=== PATIENT | male | born 1945 | race Hispanic/Latino ===

== ENCOUNTER 2021-02-09 16:46 | Inpatient (IN) | payer MEDICARE ==
[~2021-02-09] VITALS: Ht 160 cm; Wt 92.1 kg
[2021-02-09 17:20] LABS: BASOPHILS % (AUTO) 0.2 % (0.0-5.0); EOSINOPHILS % (AUTO) 0.8 % (0.0-8.0); HEMATOCRIT 38.1 % (42-54); LYMPHOCYTES % (AUTO) 3.4 % (21.0-51.0); MEAN CORPUSCULAR HEMOGLOBIN 28.4 pg (27.0-33.0); MEAN CORPUSCULAR HGB CONC 33.9 g/dL (32.0-36.0); MEAN CORPUSCULAR VOLUME 83.9 fL (79-99); MONOCYTES % (AUTO) 3.1 % (3.0-13.0); NEUTROPHILS % (AUTO) 91.7 % (40.0-77.0); PLATELET COUNT (AUTO) 139 K/uL (130-400); RED BLOOD CELL COUNT(AUTO) 4.54 MIL/uL (4.50-6.20); RED CELL DISTRIBUTION WIDTH 12.7 % (11.0-15.5); WHITE BLOOD COUNT (AUTO) 11.1 K/uL (4.8-10.8)
[2021-02-09 17:29] LABS: INR 1.12 (0.85-1.15); PROTHROMBIN TIME 12.1 SEC (9.6-11.6)
[2021-02-09 17:30] LABS: PARTIAL THROMBOPLASTIN TIME 29.8 SEC (26.3-35.5)
[2021-02-09] MEDS ORDERED: ONDANSETRON 4MG INJ IVP ONE (17:30)
[2021-02-09] MEDS ORDERED: MORPHINE 2 MG SYG IVP ONE (17:30)
[2021-02-09] MEDS ORDERED: 0.9%NACL 1000ML 1,000 ML IV ONE (17:30)
[2021-02-09 17:36] LABS: CREATININE 1.1 mg/dL (0.5-1.5); POTASSIUM 3.4 mmol/L (3.5-5.1)
[2021-02-09 17:43] LABS: ALBUMIN 3.2 g/dL (3.5-5.0); BILIRUBIN,TOTAL 2.1 mg/dL (0.2-1.0); TOTAL PROTEIN, SERUM 7.2 g/dL (6.0-8.3)
[2021-02-09] MEDS ORDERED: KETOROLAC 15MG/ML VIAL (15MG/ML) ONE (17:57)
[2021-02-09] MEDS: MORPHINE 4 MG SYG ONE ×2 (17:58→18:33)
[2021-02-09] MEDS ORDERED: KETOROLAC 15MG/ML VIAL (15MG/ML) IV ONE (18:00)
[2021-02-09] MEDS ORDERED: MORPHINE 4 MG SYG IV ONE (18:00)
[2021-02-09 18:06] LABS: APPEARANCE,URINE Clear (CLEAR); BILIRUBIN,URINE Negative (NEGATIVE); COLOR,URINE Yellow (YELLOW); GLUCOSE, URINE (UA) Negative (NEGATIVE); KETONES,URINE Negative (NEGATIVE); LEUKOCYTE ESTERASE ,URINE Negative (NEGATIVE); NITRATE,URINE Negative (NEGATIVE); OCCULT BLOOD,URINE Small (NEGATIVE); PH,URINE 5.5 (5.0-8.0); PROTEIN,URINE POS 2+ mg/dL (NEGATIVE)
[2021-02-09] MEDS ORDERED: ACETAMINOPHEN 500 MG TABLET ONE (18:20)
[2021-02-09 18:27] LABS: BACTERIA,URINE Rare /HPF (None Seen); RBC,URINE 0-1 /HPF (0-1); SQUAMOUS EPITHELIAL CELL,UR Rare /HPF (0-2); WBC,URINE 0-1 /HPF (0-1)
[2021-02-09] MEDS ORDERED: ACETAMINOPHEN 500 MG TABLET PO ONE ×2 (18:30→19:00)
[2021-02-09] MEDS ORDERED: 0.9%NACL 50ML 50 ML IV ONE (19:55)
[2021-02-09] MEDS: ZOSYN 3.375GM +NS 50ML IV SCH (20:00)
[2021-02-09] MEDS ORDERED: MORPHINE 2 MG SYG IVP PRN (21:00)
[2021-02-09] MEDS ORDERED: ONDANSETRON 4MG INJ IVP PRN (21:00)
[2021-02-09] MEDS ORDERED: 0.9% NACL 500ML IV.SOLN 500 ML IV ONE (21:58)
[2021-02-09] MEDS ORDERED: 0.9%NACL 1000ML 1,000 ML IV STA ×2 (23:12→23:59)
[2021-02-09] MEDS ORDERED: MIDODRINE HCL 5 MG TABLET PO STA (23:23)
[2021-02-10] VITALS (16 sets, daily range): BP systolic 97–160; BP diastolic 38–88
[2021-02-10] MEDS ORDERED: NITROGLYCERIN 0.4 MG SL TAB SL PRN (00:30)
[2021-02-10] MEDS ORDERED: NOREPINEPHRIN 4MG/NS 250ML 250 ML IV ONE (00:41)
[2021-02-10] MEDS ORDERED: 0.9%NACL 100ML IVPB SCH (01:00)
[2021-02-10] MEDS ORDERED: VANCOMYCIN PROTOCOL PER PHARMACY IV SCH ×2 (01:00→07:00)
[2021-02-10] MEDS: NOREPINEPHRIN 4MG/NS 250ML 250 ML IV SCH ×2 (01:21→07:59)
[2021-02-10] MEDS ORDERED: VANCOMYCIN 1G/250ML KIT 250 ML IV ONE (01:30)
[2021-02-10] MEDS ORDERED: GLUCAGON 1MG KIT 1 MG ML IM PRN (04:30)
[2021-02-10] MEDS ORDERED: DEXTROSE 50%-WATER 50 ML DISP.SYRIN IV PRN (04:30)
[2021-02-10] MEDS: ZOSYN 3.375GM +NS 50ML IV SCH ×3 (05:54→21:26)
[2021-02-10] MEDS: INSULIN HUMULIN R 100 UNIT/ML 3ML SQ SCH ×3 (06:00→18:00)
[2021-02-10 06:33] LABS: BASOPHILS % (AUTO) 0.5 % (0.0-5.0); EOSINOPHILS % (AUTO) 0.1 % (0.0-8.0); HEMATOCRIT 37.9 % (42-54); LYMPHOCYTES % (AUTO) 1.1 % (21.0-51.0); MEAN CORPUSCULAR HEMOGLOBIN 29.6 pg (27.0-33.0); MEAN CORPUSCULAR HGB CONC 33.8 g/dL (32.0-36.0); MEAN CORPUSCULAR VOLUME 87.7 fL (79-99); MONOCYTES % (AUTO) 2.6 % (3.0-13.0); NEUTROPHILS % (AUTO) 94.8 % (40.0-77.0); PLATELET COUNT (AUTO) 115 K/uL (130-400); RED BLOOD CELL COUNT(AUTO) 4.32 MIL/uL (4.50-6.20); RED CELL DISTRIBUTION WIDTH 13.1 % (11.0-15.5)
[2021-02-10 06:36] LABS: WHITE BLOOD COUNT (AUTO) 35.8 K/uL (4.8-10.8)
[2021-02-10] MEDS: LEVOTHYROXINE 25 MCG TABLET PO SCH (06:40)
[2021-02-10 07:00] LABS: BAND NEUTROPHILS % (MANUAL) 16 % (0-2); CREATININE 1.9 mg/dL (0.5-1.5); MAGNESIUM 1.6 mg/dL (1.80-2.40); MAN.DIFF COMMENT-IMPRESSION MANUAL DIFFERENTIAL; MONOCYTES % (MANUAL) 7 % (2-9); PLATELET MORPHOLOGY COMMENT SLIGHTLY DECREASED; POTASSIUM 3.3 mmol/L (3.5-5.1); SEGMENTED NEUTROPHILS % 77 % (40-70); THYROID STIMULATING HORMONE 3.19 uIU/mL (0.36-3.74)
[2021-02-10] MEDS: VANCOMYCIN 1G/250ML KIT 250 ML IV SCH ×2 (11:08→21:27)
[2021-02-10] MEDS: FAMOTIDINE 20MG VIAL IV SCH (11:08)
[2021-02-10] MEDS ORDERED: LIDOCAINE HCL-MPF 1% 2ML VIAL IV PRN ×2 (11:30)
[2021-02-10] MEDS ORDERED: KCL 20 MEQ ERTAB PO PRN (11:30)
[2021-02-10] MEDS ORDERED: POTASSIUM CHLORIDE 10MEQ/100ML 100 ML IV PRN ×2 (11:30)
[2021-02-10] MEDS: 0.9%NACL 1000ML 1,000 ML IV SCH ×2 (11:44→21:27)
[2021-02-10] MEDS ORDERED: GABA300T25 PO (15:10)
[2021-02-10] MEDS ORDERED: ROSU10TA28 PO (15:10)
[2021-02-10] MEDS ORDERED: TAMSULOSIN PO (15:10)
[2021-02-10] MEDS ORDERED: RAMI5CAP66 PO (15:10)
[2021-02-10] MEDS ORDERED: ASPI-1521 PO (15:10)
[2021-02-10] MEDS ORDERED: MAGNESIUM 2GM PREMIX 50ML 50 ML IV PRN (15:30)
[2021-02-10 15:33] LABS: BILIRUBIN,DIRECT 0.7 mg/dL (0.0-0.3); BILIRUBIN,TOTAL 2.2 mg/dL (0.2-1.0)
[2021-02-10] MEDS ORDERED: 0.9% NACL 250ML 250 ML ONE (20:25)
[2021-02-10] MEDS: IPRATROPIUM 0.5 MG/2.5 ML INH IH SCH (22:07)
[2021-02-10] MEDS ORDERED: ALBUTEROL 0.083% 2.5 MG/3 ML INH IH PRN (23:30)
[2021-02-10] MEDS ORDERED: TAMSULOSIN HCL 0.4 MG CAP.ER.24H ONE (23:50)
[2021-02-11] VITALS (31 sets, daily range): BP systolic 74–193; BP diastolic 53–98
[2021-02-11] MEDS ORDERED: TAMSULOSIN HCL 0.4 MG CAP.ER.24H PO SCH
[2021-02-11] MEDS: IPRATROPIUM 0.5 MG/2.5 ML INH IH SCH ×3 (00:40→18:10)
[2021-02-11] MEDS ORDERED: HYDROMORPHONE 1 MG INJ IVP ONE (01:30)
[2021-02-11] MEDS ORDERED: HYDROMORPHONE 1 MG INJ ONE (01:33)
[2021-02-11] MEDS: ACETAMINOPHEN 325 MG TAB PO PRN ×2 (01:50→23:44)
[2021-02-11 02:25] LABS: BASOPHILS % (AUTO) 0.5 % (0.0-5.0); EOSINOPHILS % (AUTO) 1.6 % (0.0-8.0); HEMATOCRIT 35.4 % (42-54); MEAN CORPUSCULAR HEMOGLOBIN 29.4 pg (27.0-33.0); MEAN CORPUSCULAR HGB CONC 34.5 g/dL (32.0-36.0); MEAN CORPUSCULAR VOLUME 85.3 fL (79-99); MONOCYTES % (AUTO) 1.5 % (3.0-13.0); NEUTROPHILS % (AUTO) 91.9 % (40.0-77.0); PLATELET COUNT (AUTO) 85 K/uL (130-400); RED BLOOD CELL COUNT(AUTO) 4.15 MIL/uL (4.50-6.20); RED CELL DISTRIBUTION WIDTH 13.4 % (11.0-15.5); WHITE BLOOD COUNT (AUTO) 20.2 K/uL (4.8-10.8)
[2021-02-11 02:41] LABS: ALBUMIN 2.4 g/dL (3.5-5.0); BILIRUBIN,TOTAL 1.8 mg/dL (0.2-1.0); CREATININE 1.6 mg/dL (0.5-1.5); MAGNESIUM 2.3 mg/dL (1.80-2.40); PHOSPHORUS 2.2 mg/dL (2.5-4.9); POTASSIUM 3.3 mmol/L (3.5-5.1)
[2021-02-11] MEDS: ZOSYN 3.375GM +NS 50ML IV SCH (04:20)
[2021-02-11] MEDS ORDERED: 0.9%NACL 1000ML 1,000 ML IV ONE (04:30)
[2021-02-11] MEDS: INSULIN HUMULIN R 100 UNIT/ML 3ML SQ SCH ×4 (06:00→18:00)
[2021-02-11] MEDS: LEVOTHYROXINE 25 MCG TABLET PO SCH (07:24)
[2021-02-11] MEDS: 0.9%NACL 1000ML 1,000 ML IV SCH ×2 (07:30→17:31)
[2021-02-11] MEDS: FAMOTIDINE 20MG VIAL IV SCH (09:54)
[2021-02-11] MEDS: VANCOMYCIN 1G/250ML KIT 250 ML IV SCH (09:55)
[2021-02-11] MEDS: CEFTRIAXONE 2GM VIAL IVP SCH (12:22)
[2021-02-11] MEDS: TAMSULOSIN HCL 0.4 MG CAP.ER.24H PO SCH (19:10)
[2021-02-11] MEDS ORDERED: TAMSULOSIN HCL 0.4 MG CAP.ER.24H ONE (19:10)
[2021-02-12] VITALS (26 sets, daily range): BP systolic 91–152; BP diastolic 53–95
[2021-02-12] MEDS ORDERED: KETOROLAC 15MG/ML VIAL (15MG/ML) IV ONE
[2021-02-12] MEDS: IPRATROPIUM 0.5 MG/2.5 ML INH IH SCH ×4 (00:02→19:02)
[2021-02-12] MEDS ORDERED: KETOROLAC 15MG/ML VIAL (15MG/ML) ONE (02:10)
[2021-02-12 03:34] LABS: BASOPHILS % (AUTO) 0.4 % (0.0-5.0); HEMATOCRIT 33.4 % (42-54); LYMPHOCYTES % (AUTO) 1.1 % (21.0-51.0); MEAN CORPUSCULAR HEMOGLOBIN 28.9 pg (27.0-33.0); MEAN CORPUSCULAR HGB CONC 33.5 g/dL (32.0-36.0); MEAN CORPUSCULAR VOLUME 86.3 fL (79-99); MONOCYTES % (AUTO) 2.8 % (3.0-13.0); PLATELET COUNT (AUTO) 67 K/uL (130-400); RED BLOOD CELL COUNT(AUTO) 3.87 MIL/uL (4.50-6.20); RED CELL DISTRIBUTION WIDTH 13.8 % (11.0-15.5)
[2021-02-12 03:47] LABS: INR 1.1 (0.85-1.15); PROTHROMBIN TIME 11.9 SEC (9.6-11.6)
[2021-02-12 03:56] LABS: ALBUMIN 2.1 g/dL (3.5-5.0); BILIRUBIN,TOTAL 1.9 mg/dL (0.2-1.0); CREATININE 1.7 mg/dL (0.5-1.5); TOTAL PROTEIN, SERUM 5.7 g/dL (6.0-8.3)
[2021-02-12 04:00] LABS: POTASSIUM 2.6 mmol/L (3.5-5.1)
[2021-02-12] MEDS: POTASSIUM CHLORIDE 10MEQ/100ML 100 ML IV PRN ×3 (04:05→04:51)
[2021-02-12] MEDS: 0.9%NACL 1000ML 1,000 ML IV SCH ×2 (04:16→14:23)
[2021-02-12] MEDS: INSULIN HUMULIN R 100 UNIT/ML 3ML SQ SCH ×4 (06:00→17:41)
[2021-02-12] MEDS: LEVOTHYROXINE 25 MCG TABLET PO SCH (06:12)
[2021-02-12] MEDS: ACETAMINOPHEN 325 MG TAB PO PRN (07:19)
[2021-02-12] MEDS: TAMSULOSIN HCL 0.4 MG CAP.ER.24H PO SCH (08:25)
[2021-02-12] MEDS: FAMOTIDINE 20MG VIAL IV SCH (08:25)
[2021-02-12] MEDS ORDERED: IOHEXOL-350 50ML VIAL IV ONE (11:58)
[2021-02-12] MEDS ORDERED: PROPOFOL 10 MG/ML 20ML VIAL IV ONE (12:22)
[2021-02-12] MEDS ORDERED: MIDAZOLAM HCL 1 MG/ML 2ML VIAL ONE (12:23)
[2021-02-12] MEDS ORDERED: FENTANYL CITRATE PF 50 MCG/1 ML 2ML VIAL ONE (12:23)
[2021-02-12] MEDS ORDERED: ROCURONIUM 10MG/1ML SYR 10 MG/ML ML ONE (12:24)
[2021-02-12] MEDS ORDERED: GLYCOPYRROLATE 0.2 MG/ML 5 ML VIAL ONE (12:28)
[2021-02-12] MEDS ORDERED: ESMOLOL HCL 10 MG/ML 10 ML VIAL ONE (12:44)
[2021-02-12] MEDS: CEFTRIAXONE 2GM VIAL IVP SCH (14:23)
[2021-02-13] VITALS (11 sets, daily range): BP systolic 124–148; BP diastolic 71–99
[2021-02-13] MEDS: 0.9%NACL 1000ML 1,000 ML IV SCH (00:39)
[2021-02-13] MEDS: IPRATROPIUM 0.5 MG/2.5 ML INH IH SCH ×3 (00:51→11:16)
[2021-02-13 04:36] LABS: BASOPHILS % (AUTO) 0.5 % (0.0-5.0); EOSINOPHILS % (AUTO) 0.7 % (0.0-8.0); HEMATOCRIT 35.7 % (42-54); LYMPHOCYTES % (AUTO) 3.3 % (21.0-51.0); MEAN CORPUSCULAR HEMOGLOBIN 28.6 pg (27.0-33.0); MEAN CORPUSCULAR HGB CONC 33.6 g/dL (32.0-36.0); MONOCYTES % (AUTO) 3.1 % (3.0-13.0); NEUTROPHILS % (AUTO) 90.5 % (40.0-77.0); PLATELET COUNT (AUTO) 36 K/uL (130-400); RED CELL DISTRIBUTION WIDTH 14.2 % (11.0-15.5)
[2021-02-13 05:00] LABS: ALANINE AMINOTRANSFERASE 37 U/L (12-78); ALBUMIN 1.9 g/dL (3.5-5.0); ASPARTATE AMINOTRANSFERASE 45 U/L (10-37); BILIRUBIN,DIRECT 0.3 mg/dL (0.0-0.3); BILIRUBIN,TOTAL 1.1 mg/dL (0.2-1.0); CARBON DIOXIDE 18 mmol/L (21-32); CREATININE 1.4 mg/dL (0.5-1.5); GLOMERULAR FILTR. RATE CALC 53 mL/min (>60); GLUCOSE,RANDOM 136 mg/dL (70-105); POTASSIUM 3.5 mmol/L (3.5-5.1); SODIUM SERUM 152 mmol/L (136-145); TOTAL PROTEIN, SERUM 5.8 g/dL (6.0-8.3); UREA NITROGEN, BLOOD 38 mg/dL (7-18)
[2021-02-13 05:29] LABS: CHLORIDE 120 mmol/L (101-111)
[2021-02-13 05:30] LABS: LIPASE < 50 U/L (114-286)
[2021-02-13] MEDS: INSULIN HUMULIN R 100 UNIT/ML 3ML SQ SCH ×5 (05:37→22:00)
[2021-02-13] MEDS: LEVOTHYROXINE 25 MCG TABLET PO SCH (06:02)
[2021-02-13] MEDS: TAMSULOSIN HCL 0.4 MG CAP.ER.24H PO SCH (07:57)
[2021-02-13] MEDS: PANTOPRAZOLE 40 MG TAB DR PO SCH (07:57)
[2021-02-13] MEDS ORDERED: POLYETHYLENE GLYCOL 3350 17 GM POWD.PACK PO SCH (09:00)
[2021-02-13] MEDS: POLYETHYLENE GLYCOL 3350 17 GM POWD.PACK PO SCH (14:53)
[2021-02-13] MEDS: CEFTRIAXONE 2GM VIAL IVP SCH (14:53)
[2021-02-13] MEDS ORDERED: PHARMACY COMMUNICATION MISC SCH (21:30)
[2021-02-13] MEDS ORDERED: INSULIN HUMULIN R 100 UNIT/ML 3ML SQ SCH (21:30)
[2021-02-14 00:28] VITALS: BP 143/85
[2021-02-14] MEDS: IPRATROPIUM 0.5 MG/2.5 ML INH IH SCH ×4 (01:33→23:27)
[2021-02-14 04:28] VITALS: BP 143/83
[2021-02-14] MEDS: INSULIN HUMULIN R 100 UNIT/ML 3ML SQ SCH ×4 (06:42→21:00)
[2021-02-14] MEDS: LEVOTHYROXINE 25 MCG TABLET PO SCH (06:44)
[2021-02-14 07:35] VITALS: BP 156/91
[2021-02-14] MEDS: POLYETHYLENE GLYCOL 3350 17 GM POWD.PACK PO SCH (10:04)
[2021-02-14] MEDS: PANTOPRAZOLE 40 MG TAB DR PO SCH (10:04)
[2021-02-14] MEDS: TAMSULOSIN HCL 0.4 MG CAP.ER.24H PO SCH (10:04)
[2021-02-14 10:06] LABS: HEMATOCRIT 37.3 % (42-54); MEAN CORPUSCULAR HEMOGLOBIN 28.6 pg (27.0-33.0); PLATELET COUNT (AUTO) 32 K/uL (130-400); RED BLOOD CELL COUNT(AUTO) 4.44 MIL/uL (4.50-6.20); WHITE BLOOD COUNT (AUTO) 10.2 K/uL (4.8-10.8)
[2021-02-14 10:21] LABS: ALBUMIN 2.1 g/dL (3.5-5.0); BILIRUBIN,TOTAL 1.1 mg/dL (0.2-1.0); CREATININE 1.2 mg/dL (0.5-1.5); POTASSIUM 3.3 mmol/L (3.5-5.1); TOTAL PROTEIN, SERUM 5.8 g/dL (6.0-8.3)
[2021-02-14 10:52] LABS: LYMPHOCYTES % (MANUAL) 3 % (22-44); MAN.DIFF COMMENT-IMPRESSION MANUAL DIFFERENTIAL; MONOCYTES % (MANUAL) 2 % (2-9); SEGMENTED NEUTROPHILS % 95 % (40-70)
[2021-02-14 11:35] VITALS: BP 160/79
[2021-02-14] MEDS ORDERED: BENZOCAINE/MENTH/CETYLPYRD CL 1 EACH LOZENGE MM PRN (12:30)
[2021-02-14 15:40] VITALS: BP 143/82
[2021-02-14] MEDS: CEFTRIAXONE 2GM VIAL IVP SCH (16:51)
[2021-02-14 20:32] VITALS: BP 149/85
[2021-02-14] MEDS: POTASSIUM CHLORIDE 10% ELIXIR 20 MEQ/15 ML UDCUP PO PRN ×2 (21:06→22:57)
[2021-02-15] VITALS (7 sets, daily range): BP systolic 135–160; BP diastolic 74–100
[2021-02-15] MEDS: POTASSIUM CHLORIDE 10% ELIXIR 20 MEQ/15 ML UDCUP PO PRN (00:40)
[2021-02-15 04:58] LABS: HEMATOCRIT 33.6 % (42-54); MEAN CORPUSCULAR HEMOGLOBIN 28.4 pg (27.0-33.0); MEAN CORPUSCULAR HGB CONC 34.5 g/dL (32.0-36.0); MEAN CORPUSCULAR VOLUME 82.4 fL (79-99); PLATELET COUNT (AUTO) 32 K/uL (130-400); RED BLOOD CELL COUNT(AUTO) 4.08 MIL/uL (4.50-6.20); RED CELL DISTRIBUTION WIDTH 13.7 % (11.0-15.5); WHITE BLOOD COUNT (AUTO) 7.7 K/uL (4.8-10.8)
[2021-02-15 05:14] LABS: ALANINE AMINOTRANSFERASE 42 U/L (12-78); ALBUMIN 1.9 g/dL (3.5-5.0); ASPARTATE AMINOTRANSFERASE 37 U/L (10-37); BILIRUBIN,DIRECT 0.3 mg/dL (0.0-0.3); BILIRUBIN,TOTAL 0.9 mg/dL (0.2-1.0); CARBON DIOXIDE 21 mmol/L (21-32); CHLORIDE 118 mmol/L (101-111); CREATININE 1.1 mg/dL (0.5-1.5); GLOMERULAR FILTR. RATE CALC 70 mL/min (>60); GLUCOSE,RANDOM 105 mg/dL (70-105); POTASSIUM 3.5 mmol/L (3.5-5.1); SODIUM SERUM 149 mmol/L (136-145); TOTAL PROTEIN, SERUM 5.3 g/dL (6.0-8.3); UREA NITROGEN, BLOOD 29 mg/dL (7-18)
[2021-02-15 05:22] LABS: LIPASE < 50 U/L (114-286)
[2021-02-15] MEDS: LEVOTHYROXINE 25 MCG TABLET PO SCH (05:25)
[2021-02-15] MEDS: INSULIN HUMULIN R 100 UNIT/ML 3ML SQ SCH ×4 (05:48→21:00)
[2021-02-15] MEDS: IPRATROPIUM 0.5 MG/2.5 ML INH IH SCH ×3 (06:38→18:28)
[2021-02-15] MEDS: TAMSULOSIN HCL 0.4 MG CAP.ER.24H PO SCH (10:55)
[2021-02-15] MEDS: POLYETHYLENE GLYCOL 3350 17 GM POWD.PACK PO SCH (10:55)
[2021-02-15] MEDS: PANTOPRAZOLE 40 MG TAB DR PO SCH (10:55)
[2021-02-15] MEDS ORDERED: HYDRALAZINE 25MG TABLET PO SCH (13:00)
[2021-02-15] MEDS ORDERED: RAMI5CAP66 PO (14:33)
[2021-02-15] MEDS: CEFTRIAXONE 2GM VIAL IVP SCH (15:05)
[2021-02-15] MEDS: LISINOPRIL 20 MG TABLET PO SCH (15:24)
[2021-02-15] MEDS ORDERED: DEXAMETHASONE SOD PHOSPHATE 4 MG/ML 1ML VIAL IVP SCH (18:00)
[2021-02-15] MEDS ORDERED: 0.9% NACL 250ML 250 ML ONE (21:55)
[2021-02-15] MEDS: METOPROLOL TARTRATE 25 MG TAB PO SCH (22:12)
[2021-02-16] MEDS: IPRATROPIUM 0.5 MG/2.5 ML INH IH SCH ×3 (00:34→13:04)
[2021-02-16 03:55] VITALS: BP 149/82
[2021-02-16 04:32] LABS: HEMATOCRIT 30.8 % (42-54); MEAN CORPUSCULAR HEMOGLOBIN 28.7 pg (27.0-33.0); MEAN CORPUSCULAR HGB CONC 35.1 g/dL (32.0-36.0); MEAN CORPUSCULAR VOLUME 81.9 fL (79-99); PLATELET COUNT (AUTO) 51 K/uL (130-400); RED BLOOD CELL COUNT(AUTO) 3.76 MIL/uL (4.50-6.20); RED CELL DISTRIBUTION WIDTH 13.8 % (11.0-15.5); WHITE BLOOD COUNT (AUTO) 8.5 K/uL (4.8-10.8)
[2021-02-16 04:43] LABS: INR 1.03 (0.85-1.15); PROTHROMBIN TIME 11.2 SEC (9.6-11.6)
[2021-02-16 04:44] LABS: PARTIAL THROMBOPLASTIN TIME 24.5 SEC (26.3-35.5)
[2021-02-16 05:04] LABS: BILIRUBIN,TOTAL 1.1 mg/dL (0.2-1.0); CREATININE 1.1 mg/dL (0.5-1.5); POTASSIUM 3.7 mmol/L (3.5-5.1); TOTAL PROTEIN, SERUM 5.5 g/dL (6.0-8.3)
[2021-02-16 05:11] LABS: LYMPHOCYTES % (MANUAL) 5 % (22-44); MAN.DIFF COMMENT-IMPRESSION MANUAL DIFFERENTIAL; MONOCYTES % (MANUAL) 5 % (2-9); SEGMENTED NEUTROPHILS % 90 % (40-70)
[2021-02-16 05:12] LABS: PLATELET MORPHOLOGY COMMENT MARKED DECREASE
[2021-02-16] MEDS: LEVOTHYROXINE 25 MCG TABLET PO SCH (06:25)
[2021-02-16] MEDS: INSULIN HUMULIN R 100 UNIT/ML 3ML SQ SCH ×2 (06:25→11:30)
[2021-02-16 07:58] VITALS: BP 145/86
[2021-02-16] MEDS: POLYETHYLENE GLYCOL 3350 17 GM POWD.PACK PO SCH (09:00)
[2021-02-16] MEDS ORDERED: NON-FORMULARY MEDICATION 1 EACH (Ramipril 5 MG) PO SCH (09:00)
[2021-02-16] MEDS: TAMSULOSIN HCL 0.4 MG CAP.ER.24H PO SCH (09:52)
[2021-02-16] MEDS: METOPROLOL TARTRATE 25 MG TAB PO SCH (09:52)
[2021-02-16] MEDS: LISINOPRIL 20 MG TABLET PO SCH (09:53)
[2021-02-16] MEDS: PANTOPRAZOLE 40 MG TAB DR PO SCH (09:54)
[2021-02-16 10:40] LABS: APPEARANCE,URINE Clear (CLEAR); BILIRUBIN,URINE Negative (NEGATIVE); COLOR,URINE Yellow (YELLOW); GLUCOSE, URINE (UA) Negative (NEGATIVE); KETONES,URINE Negative (NEGATIVE); LEUKOCYTE ESTERASE ,URINE Negative (NEGATIVE); NITRATE,URINE Negative (NEGATIVE); OCCULT BLOOD,URINE Moderate (NEGATIVE); PROTEIN,URINE Negative (NEGATIVE); UROBILINOGEN,URINE 0.2 mg/dL (0.2-1.0)
[2021-02-16 10:56] LABS: BACTERIA,URINE None Seen /HPF (None Seen); RBC,URINE 0-1 /HPF (0-1); SQUAMOUS EPITHELIAL CELL,UR 0-2 /HPF (0-2); WBC,URINE 0-1 /HPF (0-1)
[2021-02-16 11:30] VITALS: BP 134/78
[2021-02-23] MEDS ORDERED: GABA300C PO (13:13)
[2021-02-23] MEDS ORDERED: LEVO750T46 PO (13:13)
[2021-02-23] MEDS ORDERED: ACET-2247 PO (13:13)
[2021-02-23] MEDS ORDERED: TAMS-1 PO (13:13)
== END 2021-02-16 16:45 | disposition home or self-care (01) | DRG 871 ==
LOC: EDH 16:46 → EDHIP 20:31 → 3CH 22:24 → EDHIP 23:46 → 2DH 02-10 08:32 → 3BH 02-13 18:20
PROVIDERS: ADMIT Internal Medicine Infectious Disease; ATTEND Internal Medicine Infectious Disease
PROC: 0FC98ZZ Extirpation of Matter from Common Bile Duct, Via Natural or Artificial Opening Endoscopic (ICD-10-PCS; principal; 2021-02-12)
PROC: 30233R1 Transfusion of Nonautologous Platelets into Peripheral Vein, Percutaneous Approach (ICD-10-PCS; 2021-02-15)
DX: A41.51 Sepsis due to Escherichia coli [E. coli] (principal); R65.21 Severe sepsis with septic shock; K80.62 Calculus of gallbladder and bile duct with acute cholecystitis without obstruction; N17.9 Acute kidney failure, unspecified; K82.8 Other specified diseases of gallbladder; D69.6 Thrombocytopenia, unspecified; E87.6 Hypokalemia; Z20.822 Contact with and (suspected) exposure to COVID-19; M19.90 Unspecified osteoarthritis, unspecified site; B96.20 Unspecified Escherichia coli [E. coli] as the cause of diseases classified elsewhere; B96.89 Other specified bacterial agents as the cause of diseases classified elsewhere; D64.9 Anemia, unspecified; E11.22 Type 2 diabetes mellitus with diabetic chronic kidney disease; E66.9 Obesity, unspecified; E78.00 Pure hypercholesterolemia, unspecified; E78.5 Hyperlipidemia, unspecified; E03.9 Hypothyroidism, unspecified; E86.0 Dehydration; I12.9 Hypertensive chronic kidney disease with stage 1 through stage 4 chronic kidney disease, or unspecified chronic kidney disease; E87.8 Other disorders of electrolyte and fluid balance, not elsewhere classified; J44.9 Chronic obstructive pulmonary disease, unspecified; N18.9 Chronic kidney disease, unspecified; N40.0 Benign prostatic hyperplasia without lower urinary tract symptoms; R53.81 Other malaise; Z68.36 Body mass index [BMI] 36.0-36.9, adult; Z86.73 Personal history of transient ischemic attack (TIA), and cerebral infarction without residual deficits; Z83.3 Family history of diabetes mellitus
CPT/HCPCS: 36415; 36430; 43262; 43264; 71045; 74176; 74181; 74330; 76705; 80048; 80053; 80076; 80202; 81001; 82247; 82248; 82550; 82948; 83605; 83690; 83735; 83880; 83883; 84100; 84132; 84145; 84443; 84484; 85025; 85027; 85610; 85730; 86334; 86850; 86900; 86901; 87040; 87077; 87088; 87186; 87635; 93005; 94640; A4606; C1769; C1773; C9803; G0378; J0696; J1100; J1170; J1885; J2250; J2270; J2405; J2543; J2704; J3010; J3370; J3475; J3490; J7030; J7040; J7050; P9034; Q9967

== ENCOUNTER 2021-02-24 11:40 | Day surgery (SDC) | payer MEDICARE ==
[2021-02-22 12:03] LABS: BASOPHILS % (AUTO) 0.4 % (0.0-5.0); HEMATOCRIT 32.4 % (42-54); LYMPHOCYTES % (AUTO) 10.7 % (21.0-51.0); MEAN CORPUSCULAR HEMOGLOBIN 28.9 pg (27.0-33.0); MEAN CORPUSCULAR VOLUME 87.6 fL (79-99); MONOCYTES % (AUTO) 10.6 % (3.0-13.0); NEUTROPHILS % (AUTO) 76.9 % (40.0-77.0); PLATELET COUNT (AUTO) 225 K/uL (130-400); RED CELL DISTRIBUTION WIDTH 14.4 % (11.0-15.5); WHITE BLOOD COUNT (AUTO) 7.3 K/uL (4.8-10.8)
[2021-02-22 12:14] LABS: CREATININE 1.1 mg/dL (0.5-1.5); POTASSIUM 3.5 mmol/L (3.5-5.1)
[2021-02-22 12:16] LABS: INR 1.04 (0.85-1.15); PROTHROMBIN TIME 11.3 SEC (9.6-11.6)
[2021-02-23 11:35] VITALS: BP 145/79
[~2021-02-24] VITALS: Ht 160 cm; Wt 85.5 kg
[2021-02-24] VITALS (14 sets, daily range): BP systolic 140–159; BP diastolic 62–84
[~2021-02-24 11:40] MED LIST: 0.9% NACL 500ML IV.SOLN 500 ML IV SCH; ACET-2247 PO; GABA300C PO; LEVO750T46 PO; TAMS-1 PO
[2021-02-24] MEDS ORDERED: LACTATED RINGERS 1000ML 1,000 ML IV ONE (12:18)
[2021-02-24] MEDS: CEFAZOLIN SODIUM 1 GM VIAL IVP SCH ×4 (12:51→17:55)
[2021-02-24] MEDS ORDERED: INDOCYANINE GREEN 25 MG VIAL IJ ONE (13:14)
[2021-02-24] MEDS ORDERED: BUPIVACAINE/PF 0.5% 30ML VIAL ONE (17:39)
[2021-02-24] MEDS ORDERED: MIDAZOLAM HCL 1 MG/ML 2ML VIAL ONE (17:50)
[2021-02-24] MEDS ORDERED: PROPOFOL 10 MG/ML 20ML VIAL IV ONE (17:50)
[2021-02-24] MEDS ORDERED: LIDOCAINE PF 100MG/5ML (2%) SYRINGE 5ML ONE (17:50)
[2021-02-24] MEDS ORDERED: ROCURONIUM 10MG/1ML SYR 10 MG/ML ML ONE (17:51)
[2021-02-24] MEDS ORDERED: FENTANYL CITRATE PF 50 MCG/1 ML 2ML VIAL ONE (17:51)
[2021-02-24] MEDS ORDERED: EPHEDRINE SULFATE 50 MG/ML AMPULE ONE (18:11)
[2021-02-24] MEDS ORDERED: MEPERIDINE-PF 25 MG/ML SYG ONE (19:04)
== END 2021-02-24 21:47 | disposition home or self-care (01) ==
LOC: DAH 11:40
PROVIDERS: ATTEND Student in an Organized Health Care Education/Training Program
DX: K80.10 Calculus of gallbladder with chronic cholecystitis without obstruction (principal); Z20.822 Contact with and (suspected) exposure to COVID-19; I10 Essential (primary) hypertension; E66.9 Obesity, unspecified; M19.90 Unspecified osteoarthritis, unspecified site; Z79.01 Long term (current) use of anticoagulants; Z86.73 Personal history of transient ischemic attack (TIA), and cerebral infarction without residual deficits; Z98.890 Other specified postprocedural states
CPT/HCPCS: 36415; 47562; 80048; 85025; 85610; 87635; 93005; A4215; A4221; A4222; A4223; A4600; A4649 ×5; A4663; A4930; A6206; A6207; A6260; C1769 ×3; C9803; G0168; J0690; J2001; J2175; J2250; J2704; J3010; J3490 ×2; J7030; J7120

== ENCOUNTER 2021-03-01 14:37 | Inpatient (IN) | payer MEDICARE ==
[~2021-03-01] VITALS: Ht 157.5 cm; Wt 73.1 kg
[~2021-03-01 14:37] MED LIST changes: -0.9% NACL 500ML IV.SOLN 500 ML IV SCH
[2021-03-01 15:51] LABS: BASOPHILS % (AUTO) 0.2 % (0.0-5.0); EOSINOPHILS % (AUTO) 0.6 % (0.0-8.0); LYMPHOCYTES % (AUTO) 6.1 % (21.0-51.0); MEAN CORPUSCULAR HEMOGLOBIN 27.9 pg (27.0-33.0); MEAN CORPUSCULAR HGB CONC 33.4 g/dL (32.0-36.0); MEAN CORPUSCULAR VOLUME 83.3 fL (79-99); MONOCYTES % (AUTO) 5.7 % (3.0-13.0); PLATELET COUNT (AUTO) 243 K/uL (130-400); RED BLOOD CELL COUNT(AUTO) 3.48 MIL/uL (4.50-6.20); RED CELL DISTRIBUTION WIDTH 14.2 % (11.0-15.5); WHITE BLOOD COUNT (AUTO) 10.1 K/uL (4.8-10.8)
[2021-03-01 15:59] LABS: APPEARANCE,URINE Clear (CLEAR); BILIRUBIN,URINE Negative (NEGATIVE); COLOR,URINE Yellow (YELLOW); GLUCOSE, URINE (UA) Negative (NEGATIVE); KETONES,URINE Negative (NEGATIVE); LEUKOCYTE ESTERASE ,URINE Trace (NEGATIVE); NITRATE,URINE Negative (NEGATIVE); OCCULT BLOOD,URINE Nonhemolyzed Trace (NEGATIVE); PH,URINE 6.5 (5.0-8.0); PROTEIN,URINE Trace mg/dL (NEGATIVE)
[2021-03-01 16:03] LABS: CREATININE 1.3 mg/dL (0.5-1.5); INR 1.07 (0.85-1.15); POTASSIUM 3.7 mmol/L (3.5-5.1); PROTHROMBIN TIME 11.6 SEC (9.6-11.6)
[2021-03-01 16:07] LABS: ALBUMIN 2.2 g/dL (3.5-5.0); BILIRUBIN,TOTAL 0.7 mg/dL (0.2-1.0); TOTAL PROTEIN, SERUM 6.6 g/dL (6.0-8.3)
[2021-03-01 16:38] LABS: BACTERIA,URINE Rare /HPF (None Seen); SQUAMOUS EPITHELIAL CELL,UR Rare /HPF (0-2)
[2021-03-01] MEDS ORDERED: KETOROLAC 30MG VIAL (30MG/ML) IVP ONE (17:00)
[2021-03-01] MEDS ORDERED: FAMOTIDINE 20MG VIAL IV ONE (17:00)
[2021-03-01] MEDS ORDERED: ACETAMINOPHEN 500 MG TABLET ONE (17:54)
[2021-03-01] MEDS ORDERED: ACETAMINOPHEN 500 MG TABLET PO ONE (18:00)
[2021-03-01] MEDS ORDERED: LEVOFLOXACIN 500 MG/D5W 100 ML 100 ML IV SCH (19:00)
[2021-03-01] MEDS ORDERED: MORPHINE 2 MG SYG IVP PRN ×2 (20:00→20:30)
[2021-03-01] MEDS ORDERED: ACETAMINOPHEN 325 MG TAB PO PRN ×2 (20:00→20:30)
[2021-03-01] MEDS ORDERED: ONDANSETRON 4MG INJ IVP PRN ×2 (20:00→20:30)
[2021-03-01] MEDS: ZOSYN 3.375GM +NS 50ML IV SCH (20:17)
[2021-03-01] MEDS: INSULIN R PO SS1 SQ SCH (20:44)
[2021-03-01] MEDS ORDERED: INSULIN HUMULIN R 100 UNIT/ML 3ML SQ SCH (21:00)
[2021-03-02] MEDS: ZOSYN 3.375GM +NS 50ML IV SCH ×3 (02:47→17:52)
[2021-03-02 02:48] VITALS: BP 137/65
[2021-03-02 04:00] VITALS: BP 108/59
[2021-03-02] MEDS ORDERED: ZOSYN 3.375GM +NS 50ML IV SCH (05:00)
[2021-03-02 06:15] LABS: BASOPHILS % (AUTO) 0.4 % (0.0-5.0); EOSINOPHILS % (AUTO) 1.5 % (0.0-8.0); LYMPHOCYTES % (AUTO) 10.1 % (21.0-51.0); MEAN CORPUSCULAR HEMOGLOBIN 28.3 pg (27.0-33.0); MEAN CORPUSCULAR HGB CONC 32.9 g/dL (32.0-36.0); MONOCYTES % (AUTO) 7.4 % (3.0-13.0); NEUTROPHILS % (AUTO) 80.2 % (40.0-77.0); PLATELET COUNT (AUTO) 189 K/uL (130-400); RED BLOOD CELL COUNT(AUTO) 2.79 MIL/uL (4.50-6.20); RED CELL DISTRIBUTION WIDTH 13.9 % (11.0-15.5)
[2021-03-02 06:23] LABS: HEMOGLOBIN A1C 5.9 % (4.0-6.0)
[2021-03-02 06:25] LABS: ALBUMIN 1.6 g/dL (3.5-5.0); BILIRUBIN,TOTAL 0.7 mg/dL (0.2-1.0); CREATININE 1.3 mg/dL (0.5-1.5); MAGNESIUM 1.6 mg/dL (1.80-2.40); POTASSIUM 3.6 mmol/L (3.5-5.1); TOTAL PROTEIN, SERUM 5.1 g/dL (6.0-8.3)
[2021-03-02] MEDS: INSULIN R PO SS1 SQ SCH ×4 (06:28→21:00)
[2021-03-02] MEDS ORDERED: POTASSIUM CHLORIDE 20MEQ/100ML 100 ML IV PRN (07:00)
[2021-03-02] MEDS ORDERED: LIDOCAINE HCL-MPF 1% 2ML VIAL IV PRN (07:00)
[2021-03-02] MEDS ORDERED: POTASSIUM CHLORIDE 10% ELIXIR 20 MEQ/15 ML UDCUP PO PRN (07:00)
[2021-03-02 07:30] VITALS: BP 122/51
[2021-03-02] MEDS: ENOXAPARIN SODIUM 30 MG/0.3 ML SQ SCH (09:00)
[2021-03-02] MEDS ORDERED: ENOXAPARIN SODIUM 30 MG/0.3 ML SQ SCH (09:00)
[2021-03-02 11:00] VITALS: BP 125/64
[2021-03-02] MEDS: FUROSEMIDE 40MG VIAL IV SCH (11:28)
[2021-03-02] MEDS: MAGNESIUM 2GM PREMIX 50ML 50 ML IV PRN (11:36)
[2021-03-02] MEDS ORDERED: IOHEXOL-350 75 ML VIAL IV ONE (12:23)
[2021-03-02] MEDS ORDERED: [UNRECOGNIZED DRUG - CODE] PO (12:46)
[2021-03-02 16:00] VITALS: BP 127/67
[2021-03-02 20:00] VITALS: BP 91/50
[2021-03-02] MEDS: KCL 20 MEQ ERTAB PO PRN (21:11)
[2021-03-03] VITALS: BP 121/66
[2021-03-03] MEDS: ZOSYN 3.375GM +NS 50ML IV SCH ×3 (03:37→21:16)
[2021-03-03 04:00] VITALS: BP 115/67
[2021-03-03] MEDS: INSULIN R PO SS1 SQ SCH ×4 (07:08→21:00)
[2021-03-03 07:56] VITALS: BP 106/59
[2021-03-03] MEDS: FUROSEMIDE 40MG VIAL IV SCH (11:15)
[2021-03-03] MEDS: ENOXAPARIN SODIUM 30 MG/0.3 ML SQ SCH (11:24)
[2021-03-03 12:00] VITALS: BP 121/63
[2021-03-03 16:00] VITALS: BP 120/62
[2021-03-03 20:08] VITALS: BP 129/65
[2021-03-04] VITALS (22 sets, daily range): BP systolic 99–136; BP diastolic 56–76
[2021-03-04] MEDS: ZOSYN 3.375GM +NS 50ML IV SCH ×3 (03:05→18:46)
[2021-03-04 05:13] LABS: HEMATOCRIT 25.7 % (42-54); MEAN CORPUSCULAR HEMOGLOBIN 27.6 pg (27.0-33.0); MEAN CORPUSCULAR HGB CONC 33.1 g/dL (32.0-36.0); MEAN CORPUSCULAR VOLUME 83.4 fL (79-99); RED BLOOD CELL COUNT(AUTO) 3.08 MIL/uL (4.50-6.20); RED CELL DISTRIBUTION WIDTH 13.9 % (11.0-15.5); WHITE BLOOD COUNT (AUTO) 7.5 K/uL (4.8-10.8)
[2021-03-04 05:39] LABS: ALBUMIN 1.8 g/dL (3.5-5.0); BILIRUBIN,TOTAL 0.6 mg/dL (0.2-1.0); CREATININE 1.3 mg/dL (0.5-1.5); MAGNESIUM 1.9 mg/dL (1.80-2.40); TOTAL PROTEIN, SERUM 5.9 g/dL (6.0-8.3)
[2021-03-04] MEDS: INSULIN R PO SS1 SQ SCH ×4 (06:15→20:16)
[2021-03-04] MEDS: MAGNESIUM 2GM PREMIX 50ML 50 ML IV PRN (06:22)
[2021-03-04] MEDS ORDERED: IOHEXOL-350 50ML VIAL IV ONE (08:27)
[2021-03-04] MEDS: ENOXAPARIN SODIUM 30 MG/0.3 ML SQ SCH (09:00)
[2021-03-04] MEDS ORDERED: FENTANYL CITRATE PF 50 MCG/1 ML 2ML VIAL ONE (09:11)
[2021-03-04] MEDS ORDERED: PROPOFOL 10 MG/ML 20ML VIAL IV ONE (09:11)
[2021-03-04] MEDS ORDERED: MIDAZOLAM HCL 1 MG/ML 2ML VIAL ONE (09:12)
[2021-03-04] MEDS ORDERED: SUCCINYLCHOLINE 200MG/10ML SYR ONE (09:12)
[2021-03-04] MEDS ORDERED: LIDOCAINE HCL 1% 20 ML VIAL ONE (09:12)
[2021-03-04] MEDS: FUROSEMIDE 40MG VIAL IV SCH (12:16)
[2021-03-04] MEDS: KCL 20 MEQ ERTAB PO PRN ×3 (15:45→20:14)
[2021-03-05 00:34] VITALS: BP 104/68
[2021-03-05] MEDS: KCL 20 MEQ ERTAB PO PRN (01:28)
[2021-03-05] MEDS: ZOSYN 3.375GM +NS 50ML IV SCH ×3 (02:40→18:35)
[2021-03-05 04:28] VITALS: BP 102/57
[2021-03-05 04:53] LABS: HEMATOCRIT 25.5 % (42-54); MEAN CORPUSCULAR HEMOGLOBIN 28.2 pg (27.0-33.0); MEAN CORPUSCULAR HGB CONC 33.3 g/dL (32.0-36.0); MEAN CORPUSCULAR VOLUME 84.7 fL (79-99); RED BLOOD CELL COUNT(AUTO) 3.01 MIL/uL (4.50-6.20); RED CELL DISTRIBUTION WIDTH 13.8 % (11.0-15.5); WHITE BLOOD COUNT (AUTO) 7.3 K/uL (4.8-10.8)
[2021-03-05 05:02] LABS: CREATININE 1.2 mg/dL (0.5-1.5); MAGNESIUM 2.3 mg/dL (1.80-2.40); POTASSIUM 4.2 mmol/L (3.5-5.1)
[2021-03-05] MEDS: INSULIN R PO SS1 SQ SCH ×4 (07:30→20:35)
[2021-03-05 08:00] VITALS: BP 109/62
[2021-03-05] MEDS: FUROSEMIDE 40MG VIAL IV SCH (10:08)
[2021-03-05] MEDS: ENOXAPARIN SODIUM 30 MG/0.3 ML SQ SCH (10:09)
[2021-03-05 12:00] VITALS: BP 104/63
[2021-03-05] MEDS: DOCUSATE SODIUM 100 MG CAP PO SCH ×2 (12:31→21:02)
[2021-03-05 15:52] VITALS: BP 114/67
[2021-03-05 20:00] VITALS: BP 107/64
[2021-03-06] VITALS (7 sets, daily range): BP systolic 101–129; BP diastolic 58–82
[2021-03-06] MEDS: ZOSYN 3.375GM +NS 50ML IV SCH ×3 (02:11→18:21)
[2021-03-06 04:53] LABS: BASOPHILS % (AUTO) 0.5 % (0.0-5.0); EOSINOPHILS % (AUTO) 2.8 % (0.0-8.0); HEMATOCRIT 28.7 % (42-54); LYMPHOCYTES % (AUTO) 13.9 % (21.0-51.0); MEAN CORPUSCULAR HEMOGLOBIN 27.7 pg (27.0-33.0); MEAN CORPUSCULAR HGB CONC 32.8 g/dL (32.0-36.0); MEAN CORPUSCULAR VOLUME 84.7 fL (79-99); MONOCYTES % (AUTO) 11.3 % (3.0-13.0); NEUTROPHILS % (AUTO) 70.3 % (40.0-77.0); PLATELET COUNT (AUTO) 264 K/uL (130-400); RED BLOOD CELL COUNT(AUTO) 3.39 MIL/uL (4.50-6.20); RED CELL DISTRIBUTION WIDTH 13.7 % (11.0-15.5); WHITE BLOOD COUNT (AUTO) 6.5 K/uL (4.8-10.8)
[2021-03-06 05:19] LABS: BILIRUBIN,TOTAL 0.4 mg/dL (0.2-1.0); CREATININE 1.2 mg/dL (0.5-1.5); MAGNESIUM 2.2 mg/dL (1.80-2.40); POTASSIUM 3.9 mmol/L (3.5-5.1); TOTAL PROTEIN, SERUM 6.5 g/dL (6.0-8.3)
[2021-03-06] MEDS: INSULIN R PO SS1 SQ SCH ×4 (06:33→20:25)
[2021-03-06] MEDS: POLYETHYLENE GLYCOL 3350 17 GM POWD.PACK PO SCH (09:30)
[2021-03-06] MEDS: FUROSEMIDE 40MG VIAL IV SCH (09:30)
[2021-03-06] MEDS: DOCUSATE SODIUM 100 MG CAP PO SCH ×2 (09:30→20:49)
[2021-03-06] MEDS: ENOXAPARIN SODIUM 30 MG/0.3 ML SQ SCH (09:31)
[2021-03-06] MEDS ORDERED: LACTULOSE 20 GM/30 ML UDCUP PO SCH (17:00)
[2021-03-07] MEDS: ZOSYN 3.375GM +NS 50ML IV SCH ×3 (02:30→19:39)
[2021-03-07 03:39] VITALS: BP 103/67
[2021-03-07] MEDS: INSULIN R PO SS1 SQ SCH ×4 (06:28→20:19)
[2021-03-07 08:52] VITALS: BP 110/73
[2021-03-07 11:34] VITALS: BP 110/67
[2021-03-07] MEDS: FUROSEMIDE 40MG VIAL IV SCH (11:38)
[2021-03-07] MEDS: DOCUSATE SODIUM 100 MG CAP PO SCH ×2 (11:39→20:59)
[2021-03-07] MEDS: POLYETHYLENE GLYCOL 3350 17 GM POWD.PACK PO SCH (11:39)
[2021-03-07] MEDS: ENOXAPARIN SODIUM 30 MG/0.3 ML SQ SCH (11:39)
[2021-03-07 17:19] VITALS: BP 103/68
[2021-03-07] MEDS ORDERED: LACTULOSE 20 GM/30 ML UDCUP PO PRN (19:30)
[2021-03-07 19:47] VITALS: BP 111/75
[2021-03-07 23:24] VITALS: BP 165/96
[2021-03-08] VITALS (11 sets, daily range): BP systolic 85–127; BP diastolic 65–85
[2021-03-08] MEDS: ZOSYN 3.375GM +NS 50ML IV SCH ×3 (02:54→18:39)
[2021-03-08 04:29] LABS: BASOPHILS % (AUTO) 0.6 % (0.0-5.0); EOSINOPHILS % (AUTO) 2.4 % (0.0-8.0); HEMATOCRIT 27.2 % (42-54); LYMPHOCYTES % (AUTO) 16.6 % (21.0-51.0); MEAN CORPUSCULAR HGB CONC 33.5 g/dL (32.0-36.0); MEAN CORPUSCULAR VOLUME 83.7 fL (79-99); MONOCYTES % (AUTO) 9.3 % (3.0-13.0); NEUTROPHILS % (AUTO) 69.8 % (40.0-77.0); PLATELET COUNT (AUTO) 270 K/uL (130-400); RED BLOOD CELL COUNT(AUTO) 3.25 MIL/uL (4.50-6.20); RED CELL DISTRIBUTION WIDTH 13.7 % (11.0-15.5); WHITE BLOOD COUNT (AUTO) 7.9 K/uL (4.8-10.8)
[2021-03-08 04:50] LABS: BILIRUBIN,TOTAL 0.4 mg/dL (0.2-1.0); CREATININE 1.2 mg/dL (0.5-1.5); POTASSIUM 3.5 mmol/L (3.5-5.1); TOTAL PROTEIN, SERUM 6.4 g/dL (6.0-8.3)
[2021-03-08] MEDS: INSULIN R PO SS1 SQ SCH ×4 (06:36→21:00)
[2021-03-08] MEDS: ENOXAPARIN SODIUM 30 MG/0.3 ML SQ SCH (09:00)
[2021-03-08] MEDS: DOCUSATE SODIUM 100 MG CAP PO SCH ×2 (09:00→21:59)
[2021-03-08] MEDS: POLYETHYLENE GLYCOL 3350 17 GM POWD.PACK PO SCH (09:00)
[2021-03-08] MEDS: FUROSEMIDE 40MG VIAL IV SCH (10:24)
[2021-03-08] MEDS ORDERED: FENTANYL CITRATE PF 50 MCG/1 ML 2ML VIAL ONE (12:38)
[2021-03-08] MEDS ORDERED: MAGNESIUM CITRATE 296 ML SOLUTION PO ONE ×2 (17:30→20:30)
[2021-03-08 20:27] LABS: APPEARANCE BODY FLUID TURBID (CLEAR); SPECIMENTYPE,BODY FLUID OTHER
[2021-03-08 20:28] LABS: COLOR,BODY FLUID OTHER (LT YELLOW); TOTAL VOLUME,BODY FLUID 100 mL
[2021-03-08 20:29] LABS: BODY FLUID RBC 14300 /cu. mm.
[2021-03-08 20:37] LABS: BF EOSINOPHIL 1 %; BF LYMPHOCYTE 1 %; BF MONOCYTE 1 %
[2021-03-09] VITALS: BP 121/74
[2021-03-09] MEDS: ZOSYN 3.375GM +NS 50ML IV SCH ×3 (03:09→18:40)
[2021-03-09 03:53] VITALS: BP 122/70
[2021-03-09] MEDS: INSULIN R PO SS1 SQ SCH ×4 (06:07→21:00)
[2021-03-09] MEDS ORDERED: MAGNESIUM CITRATE 296 ML SOLUTION ONE (07:31)
[2021-03-09 08:00] VITALS: BP 129/80
[2021-03-09] MEDS: POLYETHYLENE GLYCOL 3350 17 GM POWD.PACK PO SCH (10:11)
[2021-03-09] MEDS: DOCUSATE SODIUM 100 MG CAP PO SCH ×2 (10:11→21:52)
[2021-03-09] MEDS: ENOXAPARIN SODIUM 30 MG/0.3 ML SQ SCH (10:11)
[2021-03-09] MEDS: FUROSEMIDE 40MG VIAL IV SCH (10:11)
[2021-03-09 12:00] VITALS: BP 120/78
[2021-03-09 16:00] VITALS: BP 126/67
[2021-03-09 20:00] VITALS: BP 121/73
[2021-03-10] VITALS: BP 104/67
[2021-03-10] MEDS: ZOSYN 3.375GM +NS 50ML IV SCH ×2 (01:54→10:05)
[2021-03-10 04:00] VITALS: BP 120/69
[2021-03-10 05:59] LABS: BASOPHILS % (AUTO) 0.4 % (0.0-5.0); EOSINOPHILS % (AUTO) 3.7 % (0.0-8.0); HEMATOCRIT 28.3 % (42-54); MEAN CORPUSCULAR HEMOGLOBIN 27.2 pg (27.0-33.0); MEAN CORPUSCULAR HGB CONC 32.5 g/dL (32.0-36.0); MEAN CORPUSCULAR VOLUME 83.7 fL (79-99); MONOCYTES % (AUTO) 8.2 % (3.0-13.0); NEUTROPHILS % (AUTO) 63.8 % (40.0-77.0); PLATELET COUNT (AUTO) 324 K/uL (130-400); RED BLOOD CELL COUNT(AUTO) 3.38 MIL/uL (4.50-6.20); RED CELL DISTRIBUTION WIDTH 13.7 % (11.0-15.5)
[2021-03-10] MEDS: INSULIN R PO SS1 SQ SCH ×2 (06:03→11:30)
[2021-03-10 06:18] LABS: ALBUMIN 2.1 g/dL (3.5-5.0); BILIRUBIN,TOTAL 0.5 mg/dL (0.2-1.0); CREATININE 1.2 mg/dL (0.5-1.5); POTASSIUM 3.7 mmol/L (3.5-5.1); TOTAL PROTEIN, SERUM 6.3 g/dL (6.0-8.3)
[2021-03-10 08:00] VITALS: BP 100/58
[2021-03-10] MEDS: DOCUSATE SODIUM 100 MG CAP PO SCH (09:00)
[2021-03-10] MEDS: POLYETHYLENE GLYCOL 3350 17 GM POWD.PACK PO SCH (09:00)
[2021-03-10] MEDS: ENOXAPARIN SODIUM 30 MG/0.3 ML SQ SCH (10:04)
[2021-03-10] MEDS: FUROSEMIDE 40MG VIAL IV SCH (10:04)
[2021-03-10 12:00] VITALS: BP 127/74
== END 2021-03-10 16:45 | disposition home or self-care (01) | DRG 862 ==
LOC: EDH 14:37 → OBSVTOIN 19:00 → EDHIP 19:00 → 3DH 03-02 02:24
PROVIDERS: ADMIT Internal Medicine Infectious Disease; ATTEND Internal Medicine Infectious Disease
PROC: 0F798DZ Dilation of Common Bile Duct with Intraluminal Device, Via Natural or Artificial Opening Endoscopic (ICD-10-PCS; principal; 2021-03-04)
PROC: 0W9G30Z Drainage of Peritoneal Cavity with Drainage Device, Percutaneous Approach (ICD-10-PCS; 2021-03-04)
DX: T81.43XA Infection following a procedure, organ and space surgical site, initial encounter (principal); A41.9 Sepsis, unspecified organism; K65.1 Peritoneal abscess; K83.2 Perforation of bile duct; J94.8 Other specified pleural conditions; D64.9 Anemia, unspecified; E78.5 Hyperlipidemia, unspecified; I10 Essential (primary) hypertension; Z20.822 Contact with and (suspected) exposure to COVID-19; N40.0 Benign prostatic hyperplasia without lower urinary tract symptoms; E11.9 Type 2 diabetes mellitus without complications; Z96.652 Presence of left artificial knee joint; E66.9 Obesity, unspecified; R53.81 Other malaise; K83.8 Other specified diseases of biliary tract; Z68.29 Body mass index [BMI] 29.0-29.9, adult; Z90.49 Acquired absence of other specified parts of digestive tract; Y92.89 Other specified places as the place of occurrence of the external cause; Z86.73 Personal history of transient ischemic attack (TIA), and cerebral infarction without residual deficits; Z83.3 Family history of diabetes mellitus
CPT/HCPCS: 10030; 36415; 43274; 71045; 71250; 74176; 74177; 74330; 76942; 78226; 80048; 80053; 81001; 82550; 82948; 83036; 83605; 83735; 84484; 85025; 85027; 85610; 85730; 87040; 87071; 87088; 87205; 87635; 89051; 93005; A4606; A9537; C1769; C1773; C2625; C9803; G0378; J0330; J1650; J1885; J1940; J2250; J2405; J2543; J2704; J3010; J3475; J3480; J3490; J7030; Q9967

== ENCOUNTER → 2021-03-22 | Outpatient (CLI) | payer MEDICARE ==
[~2021-03-22] VITALS: Ht 157.5 cm; Wt 79.7 kg
[~2021-03-22] MED LIST changes: -LEVO750T46 PO; +[UNRECOGNIZED DRUG - CODE] PO
[2021-03-22 14:54] LABS: BASOPHILS % (AUTO) 0.8 % (0.0-5.0); EOSINOPHILS % (AUTO) 2.8 % (0.0-8.0); HEMATOCRIT 32.6 % (42-54); LYMPHOCYTES % (AUTO) 27.4 % (21.0-51.0); MEAN CORPUSCULAR HEMOGLOBIN 28.1 pg (27.0-33.0); MEAN CORPUSCULAR HGB CONC 32.8 g/dL (32.0-36.0); MEAN CORPUSCULAR VOLUME 85.6 fL (79-99); MONOCYTES % (AUTO) 8.5 % (3.0-13.0); NEUTROPHILS % (AUTO) 60.3 % (40.0-77.0); PLATELET COUNT (AUTO) 208 K/uL (130-400); RED BLOOD CELL COUNT(AUTO) 3.81 MIL/uL (4.50-6.20); RED CELL DISTRIBUTION WIDTH 15.3 % (11.0-15.5); WHITE BLOOD COUNT (AUTO) 6.4 K/uL (4.8-10.8)
[2021-03-22 14:55] VITALS: BP 147/74
[2021-03-22 15:07] LABS: INR 1.06 (0.85-1.15); PROTHROMBIN TIME 11.5 SEC (9.6-11.6)
[2021-03-22 15:08] LABS: PARTIAL THROMBOPLASTIN TIME 27.8 SEC (26.3-35.5); POTASSIUM 3.5 mmol/L (3.5-5.1)
== END | disposition home or self-care (01) ==
LOC: DAH 10:00 → EDSTATUS 16:00
PROVIDERS: ATTEND Student in an Organized Health Care Education/Training Program
DX: Z01.818 Encounter for other preprocedural examination (principal); R10.9 Unspecified abdominal pain; Z79.01 Long term (current) use of anticoagulants
CPT/HCPCS: 36415; 80048; 85025; 85610; 85730

== ENCOUNTER → 2021-03-30 | Outpatient (CLI) | payer MEDICARE ==
[~2021-03-30] MED LIST changes: +IOHEXOL-350 75 ML VIAL IV ONE
== END | disposition home or self-care (01) ==
LOC: RAH 07:10
PROVIDERS: ATTEND Student in an Organized Health Care Education/Training Program
DX: K76.89 Other specified diseases of liver (principal); I70.8 Atherosclerosis of other arteries; M47.815 Spondylosis without myelopathy or radiculopathy, thoracolumbar region; N28.1 Cyst of kidney, acquired; N32.89 Other specified disorders of bladder; N40.0 Benign prostatic hyperplasia without lower urinary tract symptoms; R91.8 Other nonspecific abnormal finding of lung field; Z96.642 Presence of left artificial hip joint; Z90.49 Acquired absence of other specified parts of digestive tract
CPT/HCPCS: 74177; Q9967

== ENCOUNTER 2021-07-22 15:13 | Inpatient (IN) | payer MEDICARE ==
[~2021-07-22] VITALS: Ht 157.5 cm; Wt 76.7 kg
[~2021-07-22 15:13] MED LIST changes: -IOHEXOL-350 75 ML VIAL IV ONE; +LEVO500T90 PO
[2021-07-22] MEDS ORDERED: ACETAMINOPHEN 500 MG TABLET PO ONE (15:30)
[2021-07-22] MEDS ORDERED: ZOSYN 3.375GM +NS 50ML IV SCH (15:30)
[2021-07-22 15:55] LABS: BASOPHILS % (AUTO) 0.3 % (0.0-5.0); EOSINOPHILS % (AUTO) 0.1 % (0.0-8.0); HEMATOCRIT 35.1 % (42-54); LYMPHOCYTES % (AUTO) 9.3 % (21.0-51.0); MEAN CORPUSCULAR HEMOGLOBIN 26.5 pg (27.0-33.0); MEAN CORPUSCULAR HGB CONC 32.2 g/dL (32.0-36.0); MEAN CORPUSCULAR VOLUME 82.4 fL (79-99); MONOCYTES % (AUTO) 1.8 % (3.0-13.0); NEUTROPHILS % (AUTO) 88.1 % (40.0-77.0); PLATELET COUNT (AUTO) 109 K/uL (130-400); RED BLOOD CELL COUNT(AUTO) 4.26 MIL/uL (4.50-6.20); RED CELL DISTRIBUTION WIDTH 12.3 % (11.0-15.5); WHITE BLOOD COUNT (AUTO) 6.8 K/uL (4.8-10.8)
[2021-07-22 16:11] LABS: CREATININE 2.4 mg/dL (0.5-1.5); POTASSIUM 3.6 mmol/L (3.5-5.1)
[2021-07-22 16:15] LABS: ALBUMIN 2.9 g/dL (3.5-5.0); BILIRUBIN,TOTAL 2.1 mg/dL (0.2-1.0); TOTAL PROTEIN, SERUM 7.2 g/dL (6.0-8.3)
[2021-07-22] MEDS ORDERED: 0.9%NACL 50ML 50 ML IV ONE (16:20)
[2021-07-22] MEDS ORDERED: 0.9%NACL 1000ML 1,638 ML IV ONE (16:30)
[2021-07-22] MEDS ORDERED: ACETAMINOPHEN 500 MG TABLET ONE (16:51)
[2021-07-22] MEDS ORDERED: ONDANSETRON 4MG INJ IVP PRN (17:00)
[2021-07-22] MEDS ORDERED: NOREPINEPHRINE BITARTRATE 1 MG/1 ML ML IV ONE (18:30)
[2021-07-22] MEDS ORDERED: NOREPINEPHRIN 4MG/NS 250ML 250 ML IV SCH (18:30)
[2021-07-22] MEDS: MEROPENEM 1 GM VIAL IVP SCH (19:50)
[2021-07-22 20:20] LABS: APPEARANCE,URINE Cloudy (CLEAR); BILIRUBIN,URINE Small (NEGATIVE); COLOR,URINE Dark Yellow (YELLOW); GLUCOSE, URINE (UA) Negative (NEGATIVE); KETONES,URINE Trace mg/dL (NEGATIVE); LEUKOCYTE ESTERASE ,URINE Trace (NEGATIVE); NITRATE,URINE Negative (NEGATIVE); OCCULT BLOOD,URINE Negative (NEGATIVE); PROTEIN,URINE POS 1+ mg/dL (NEGATIVE)
[2021-07-22 20:37] LABS: BACTERIA,URINE Few /HPF (None Seen); MUCUS,URINE Few LPF (None Seen); RBC,URINE 0-1 /HPF (0-1); SQUAMOUS EPITHELIAL CELL,UR Few /HPF (0-2)
[2021-07-22] MEDS: INSULIN HUMULIN R 100 UNIT/ML 3ML SQ SCH (21:00)
[2021-07-22 22:00] VITALS: BP 115/72
[2021-07-22 22:30] VITALS: BP 119/71
[2021-07-22 23:00] VITALS: BP 132/75
[2021-07-22 23:30] VITALS: BP 105/58
[2021-07-23] VITALS (36 sets, daily range): BP systolic 96–149; BP diastolic 47–104
[2021-07-23 03:39] LABS: BASOPHILS % (AUTO) 0.2 % (0.0-5.0); EOSINOPHILS % (AUTO) 0.3 % (0.0-8.0); HEMATOCRIT 31.5 % (42-54); LYMPHOCYTES % (AUTO) 5.5 % (21.0-51.0); MEAN CORPUSCULAR HEMOGLOBIN 27.4 pg (27.0-33.0); MEAN CORPUSCULAR VOLUME 80.8 fL (79-99); MONOCYTES % (AUTO) 7.3 % (3.0-13.0); NEUTROPHILS % (AUTO) 85.3 % (40.0-77.0); PLATELET COUNT (AUTO) 109 K/uL (130-400); RED CELL DISTRIBUTION WIDTH 12.6 % (11.0-15.5)
[2021-07-23 03:54] LABS: ALBUMIN 2.1 g/dL (3.5-5.0); BILIRUBIN,TOTAL 1.5 mg/dL (0.2-1.0); CREATININE 1.7 mg/dL (0.5-1.5); MAGNESIUM 1.8 mg/dL (1.80-2.40); PHOSPHORUS 2.9 mg/dL (2.5-4.9); POTASSIUM 3.8 mmol/L (3.5-5.1); TOTAL PROTEIN, SERUM 5.8 g/dL (6.0-8.3)
[2021-07-23] MEDS: ZOSYN 3.375GM +NS 50ML IV SCH ×2 (04:35→16:16)
[2021-07-23] MEDS: 0.9%NACL 1000ML 1,000 ML IV SCH ×2 (04:35→17:20)
[2021-07-23] MEDS: INSULIN HUMULIN R 100 UNIT/ML 3ML SQ SCH ×4 (06:33→20:39)
[2021-07-23] MEDS: MEROPENEM 1 GM VIAL IVP SCH (06:49)
[2021-07-23] MEDS ORDERED: POTASSIUM CHLORIDE 10% ELIXIR 20 MEQ/15 ML UDCUP PO PRN (10:00)
[2021-07-23] MEDS ORDERED: MAGNESIUM 2GM PREMIX 50ML 50 ML IV PRN (10:00)
[2021-07-23] MEDS ORDERED: LACTULOSE 20 GM/30 ML UDCUP PO PRN (10:00)
[2021-07-23] MEDS: DEXTROSE 5 %-0.45 % NACL 1,000 ML IV SCH ×2 (10:32→23:20)
[2021-07-23] MEDS: ENOXAPARIN SODIUM 40 MG/0.4 ML SYRINGE SQ SCH (10:32)
[2021-07-23] MEDS: ACETAMINOPHEN 325 MG TAB PO PRN (14:00)
[2021-07-23] MEDS ORDERED: METF-526 PO (17:58)
[2021-07-23] MEDS ORDERED: ROSU10TA28 PO (17:58)
[2021-07-23] MEDS ORDERED: RAMI2.5C55 PO (17:58)
[2021-07-23] MEDS ORDERED: LEVO25CA4 PO (17:58)
[2021-07-24] VITALS (14 sets, daily range): BP systolic 107–156; BP diastolic 58–81
[2021-07-24] MEDS: ZOSYN 3.375GM +NS 50ML IV SCH ×2 (03:08→15:43)
[2021-07-24] MEDS: ACETAMINOPHEN 325 MG TAB PO PRN ×4 (03:09→19:52)
[2021-07-24 03:40] LABS: BASOPHILS % (AUTO) 0.2 % (0.0-5.0); EOSINOPHILS % (AUTO) 0.7 % (0.0-8.0); HEMATOCRIT 31.3 % (42-54); LYMPHOCYTES % (AUTO) 8.9 % (21.0-51.0); MEAN CORPUSCULAR HGB CONC 33.2 g/dL (32.0-36.0); MEAN CORPUSCULAR VOLUME 81.3 fL (79-99); NEUTROPHILS % (AUTO) 81.3 % (40.0-77.0); PLATELET COUNT (AUTO) 105 K/uL (130-400); RED BLOOD CELL COUNT(AUTO) 3.85 MIL/uL (4.50-6.20); RED CELL DISTRIBUTION WIDTH 12.7 % (11.0-15.5); WHITE BLOOD COUNT (AUTO) 11.6 K/uL (4.8-10.8)
[2021-07-24 03:47] LABS: ALBUMIN 2.2 g/dL (3.5-5.0); CREATININE 1.1 mg/dL (0.5-1.5); POTASSIUM 3.5 mmol/L (3.5-5.1); TOTAL PROTEIN, SERUM 6.1 g/dL (6.0-8.3)
[2021-07-24] MEDS: INSULIN HUMULIN R 100 UNIT/ML 3ML SQ SCH ×4 (06:08→21:00)
[2021-07-24] MEDS: ENOXAPARIN SODIUM 40 MG/0.4 ML SYRINGE SQ SCH (09:00)
[2021-07-24] MEDS: POLYETHYLENE GLYCOL 3350 17 GM POWD.PACK PO SCH (09:50)
[2021-07-24] MEDS: KCL 20 MEQ ERTAB PO PRN ×2 (09:50→16:26)
[2021-07-24] MEDS: TAMSULOSIN HCL 0.4 MG CAP.ER.24H PO SCH (19:52)
[2021-07-24] MEDS ORDERED: GABAPENTIN 300 MG CAPSULE ONE (19:54)
[2021-07-24] MEDS: GABAPENTIN 300 MG CAPSULE PO SCH (19:55)
[2021-07-24] MEDS ORDERED: IOHEXOL-350 50ML VIAL IV ONE (23:44)
[2021-07-25] VITALS (18 sets, daily range): BP systolic 99–184; BP diastolic 57–106
[2021-07-25] MEDS: ZOSYN 3.375GM +NS 50ML IV SCH ×2 (03:32→16:43)
[2021-07-25 03:53] LABS: BASOPHILS % (AUTO) 0.2 % (0.0-5.0); EOSINOPHILS % (AUTO) 1.2 % (0.0-8.0); HEMATOCRIT 31.3 % (42-54); MEAN CORPUSCULAR HEMOGLOBIN 26.6 pg (27.0-33.0); MEAN CORPUSCULAR HGB CONC 32.6 g/dL (32.0-36.0); MEAN CORPUSCULAR VOLUME 81.5 fL (79-99); MONOCYTES % (AUTO) 10.4 % (3.0-13.0); NEUTROPHILS % (AUTO) 74.8 % (40.0-77.0); PLATELET COUNT (AUTO) 126 K/uL (130-400); RED BLOOD CELL COUNT(AUTO) 3.84 MIL/uL (4.50-6.20); RED CELL DISTRIBUTION WIDTH 12.9 % (11.0-15.5); WHITE BLOOD COUNT (AUTO) 9.4 K/uL (4.8-10.8)
[2021-07-25 04:06] LABS: ALBUMIN 2.1 g/dL (3.5-5.0); BILIRUBIN,TOTAL 0.6 mg/dL (0.2-1.0); POTASSIUM 4.3 mmol/L (3.5-5.1); TOTAL PROTEIN, SERUM 5.9 g/dL (6.0-8.3)
[2021-07-25] MEDS: LEVOTHYROXINE 25 MCG TABLET PO SCH (06:35)
[2021-07-25] MEDS: INSULIN HUMULIN R 100 UNIT/ML 3ML SQ SCH ×4 (06:35→20:13)
[2021-07-25] MEDS ORDERED: PROPOFOL 10 MG/ML 20ML VIAL IV ONE (08:04)
[2021-07-25] MEDS ORDERED: GLYCOPYRROLATE 0.2 MG/ML 5 ML VIAL ONE (08:04)
[2021-07-25] MEDS ORDERED: SUCCINYLCHOLINE 200MG/10ML SYR ONE (08:05)
[2021-07-25] MEDS ORDERED: LIDOCAINE HCL 400MG/20ML VIAL ONE (08:05)
[2021-07-25] MEDS ORDERED: ATROPINE 1MG SYG IVP ONE (08:05)
[2021-07-25] MEDS: POLYETHYLENE GLYCOL 3350 17 GM POWD.PACK PO SCH (10:31)
[2021-07-25] MEDS: GABAPENTIN 300 MG CAPSULE PO SCH ×3 (10:31→20:31)
[2021-07-25] MEDS: ATORVASTATIN 20 MG TABLET PO SCH (10:31)
[2021-07-25] MEDS: LISINOPRIL 10 MG TABLET PO SCH (10:32)
[2021-07-25] MEDS: METFORMIN HCL 500 MG TAB.SR.24H PO SCH (10:32)
[2021-07-25] MEDS: ENOXAPARIN SODIUM 40 MG/0.4 ML SYRINGE SQ SCH (10:32)
[2021-07-25] MEDS: ACETAMINOPHEN 325 MG TAB PO PRN ×2 (11:05→16:16)
[2021-07-25] MEDS ORDERED: LACTATED RINGERS 1000ML 1,638 ML IV ONE (16:30)
[2021-07-25] MEDS ORDERED: SODIUM CHLORIDE 3% FOR INHALATION 4 ML/AMP VIAL.NEB IH ONE (17:04)
[2021-07-25 17:09] LABS: APPEARANCE,URINE Clear (CLEAR); BILIRUBIN,URINE Negative (NEGATIVE); COLOR,URINE Yellow (YELLOW); GLUCOSE, URINE (UA) Negative (NEGATIVE); KETONES,URINE Negative (NEGATIVE); LEUKOCYTE ESTERASE ,URINE Negative (NEGATIVE); NITRATE,URINE Negative (NEGATIVE); OCCULT BLOOD,URINE Negative (NEGATIVE); PH,URINE 6.5 (5.0-8.0); PROTEIN,URINE Negative (NEGATIVE)
[2021-07-25] MEDS: MEROPENEM 1 GM VIAL IVP SCH (17:10)
[2021-07-25] MEDS: TAMSULOSIN HCL 0.4 MG CAP.ER.24H PO SCH (20:31)
[2021-07-26] VITALS (10 sets, daily range): BP systolic 102–140; BP diastolic 66–77
[2021-07-26] MEDS: MEROPENEM 1 GM VIAL IVP SCH ×3 (00:42→17:51)
[2021-07-26 03:51] LABS: BASOPHILS % (AUTO) 0.2 % (0.0-5.0); HEMATOCRIT 29.3 % (42-54); LYMPHOCYTES % (AUTO) 14.9 % (21.0-51.0); MEAN CORPUSCULAR HEMOGLOBIN 27.8 pg (27.0-33.0); MEAN CORPUSCULAR HGB CONC 34.1 g/dL (32.0-36.0); MEAN CORPUSCULAR VOLUME 81.4 fL (79-99); MONOCYTES % (AUTO) 12.6 % (3.0-13.0); NEUTROPHILS % (AUTO) 70.6 % (40.0-77.0); PLATELET COUNT (AUTO) 104 K/uL (130-400); RED CELL DISTRIBUTION WIDTH 13.1 % (11.0-15.5); WHITE BLOOD COUNT (AUTO) 9.1 K/uL (4.8-10.8)
[2021-07-26 04:02] LABS: ALBUMIN 1.9 g/dL (3.5-5.0); BILIRUBIN,TOTAL 0.9 mg/dL (0.2-1.0); CREATININE 1.1 mg/dL (0.5-1.5); POTASSIUM 3.9 mmol/L (3.5-5.1); TOTAL PROTEIN, SERUM 5.7 g/dL (6.0-8.3)
[2021-07-26] MEDS: ZOSYN 3.375GM +NS 50ML IV SCH ×2 (04:05→15:54)
[2021-07-26] MEDS: INSULIN HUMULIN R 100 UNIT/ML 3ML SQ SCH ×4 (06:01→20:24)
[2021-07-26] MEDS: LEVOTHYROXINE 25 MCG TABLET PO SCH (07:33)
[2021-07-26] MEDS: GABAPENTIN 300 MG CAPSULE PO SCH ×3 (07:59→20:43)
[2021-07-26] MEDS: ATORVASTATIN 20 MG TABLET PO SCH (07:59)
[2021-07-26] MEDS: LISINOPRIL 10 MG TABLET PO SCH (07:59)
[2021-07-26] MEDS: ENOXAPARIN SODIUM 40 MG/0.4 ML SYRINGE SQ SCH (08:01)
[2021-07-26] MEDS: POLYETHYLENE GLYCOL 3350 17 GM POWD.PACK PO SCH (08:28)
[2021-07-26] MEDS: METFORMIN HCL 500 MG TAB.SR.24H PO SCH (08:30)
[2021-07-26] MEDS ORDERED: AMLODIPINE 5 MG TAB PO SCH (09:00)
[2021-07-26] MEDS ORDERED: BENZOCAINE/MENTH/CETYLPYRD CL 1 EACH LOZENGE MM PRN (09:00)
[2021-07-26] MEDS: ACETAMINOPHEN 325 MG TAB PO PRN (16:03)
[2021-07-26] MEDS: TAMSULOSIN HCL 0.4 MG CAP.ER.24H PO SCH (20:42)
[2021-07-27] VITALS: BP 111/69
[2021-07-27] MEDS: MEROPENEM 1 GM VIAL IVP SCH ×3 (01:37→16:47)
[2021-07-27] MEDS: ZOSYN 3.375GM +NS 50ML IV SCH ×2 (03:50→16:46)
[2021-07-27 04:00] VITALS: BP 129/75
[2021-07-27] MEDS: INSULIN HUMULIN R 100 UNIT/ML 3ML SQ SCH ×4 (05:51→20:48)
[2021-07-27] MEDS: LEVOTHYROXINE 25 MCG TABLET PO SCH (06:46)
[2021-07-27 07:55] VITALS: BP 127/79
[2021-07-27 08:30] LABS: HEMATOCRIT 32.8 % (42-54); MEAN CORPUSCULAR HEMOGLOBIN 26.7 pg (27.0-33.0); MEAN CORPUSCULAR HGB CONC 32.9 g/dL (32.0-36.0); RED BLOOD CELL COUNT(AUTO) 4.05 MIL/uL (4.50-6.20); RED CELL DISTRIBUTION WIDTH 13.2 % (11.0-15.5); WHITE BLOOD COUNT (AUTO) 10.4 K/uL (4.8-10.8)
[2021-07-27 08:40] LABS: CREATININE 1.1 mg/dL (0.5-1.5); POTASSIUM 3.3 mmol/L (3.5-5.1)
[2021-07-27] MEDS: POLYETHYLENE GLYCOL 3350 17 GM POWD.PACK PO SCH ×2 (09:00→12:38)
[2021-07-27] MEDS: GABAPENTIN 300 MG CAPSULE PO SCH ×3 (09:54→20:57)
[2021-07-27] MEDS: ATORVASTATIN 20 MG TABLET PO SCH (09:55)
[2021-07-27] MEDS: LISINOPRIL 10 MG TABLET PO SCH (09:55)
[2021-07-27] MEDS ORDERED: IOHEXOL-350 75 ML VIAL IV ONE (10:38)
[2021-07-27 12:00] VITALS: BP 139/75
[2021-07-27] MEDS: METFORMIN HCL 500 MG TAB.SR.24H PO SCH (12:38)
[2021-07-27] MEDS: ENOXAPARIN SODIUM 40 MG/0.4 ML SYRINGE SQ SCH (12:38)
[2021-07-27] MEDS: KCL 20 MEQ ERTAB PO PRN ×3 (12:41→19:12)
[2021-07-27 16:00] VITALS: BP 133/76
[2021-07-27 20:00] VITALS: BP 133/73
[2021-07-27] MEDS: TAMSULOSIN HCL 0.4 MG CAP.ER.24H PO SCH (20:57)
[2021-07-28] VITALS: BP 142/82
[2021-07-28] MEDS: MEROPENEM 1 GM VIAL IVP SCH ×3 (01:43→17:50)
[2021-07-28 04:00] VITALS: BP 134/71
[2021-07-28 04:39] LABS: BASOPHILS % (AUTO) 0.4 % (0.0-5.0); EOSINOPHILS % (AUTO) 1.6 % (0.0-8.0); HEMATOCRIT 30.9 % (42-54); LYMPHOCYTES % (AUTO) 16.2 % (21.0-51.0); MEAN CORPUSCULAR HEMOGLOBIN 27.3 pg (27.0-33.0); MEAN CORPUSCULAR VOLUME 80.5 fL (79-99); MONOCYTES % (AUTO) 9.2 % (3.0-13.0); NEUTROPHILS % (AUTO) 71.3 % (40.0-77.0); PLATELET COUNT (AUTO) 203 K/uL (130-400); RED BLOOD CELL COUNT(AUTO) 3.84 MIL/uL (4.50-6.20); RED CELL DISTRIBUTION WIDTH 13.2 % (11.0-15.5); WHITE BLOOD COUNT (AUTO) 7.5 K/uL (4.8-10.8)
[2021-07-28] MEDS: ZOSYN 3.375GM +NS 50ML IV SCH ×2 (05:03→17:50)
[2021-07-28 05:20] LABS: BILIRUBIN,TOTAL 0.7 mg/dL (0.2-1.0); PHOSPHORUS 3.4 mg/dL (2.5-4.9); POTASSIUM 4.3 mmol/L (3.5-5.1); TOTAL PROTEIN, SERUM 6.2 g/dL (6.0-8.3)
[2021-07-28] MEDS: INSULIN HUMULIN R 100 UNIT/ML 3ML SQ SCH ×4 (06:46→21:00)
[2021-07-28] MEDS: LEVOTHYROXINE 25 MCG TABLET PO SCH (06:46)
[2021-07-28 08:00] VITALS: BP 130/75
[2021-07-28] MEDS: METFORMIN HCL 500 MG TAB.SR.24H PO SCH (08:00)
[2021-07-28] MEDS: GABAPENTIN 300 MG CAPSULE PO SCH ×3 (09:00→19:31)
[2021-07-28] MEDS: LISINOPRIL 10 MG TABLET PO SCH (09:00)
[2021-07-28] MEDS: ATORVASTATIN 20 MG TABLET PO SCH (09:00)
[2021-07-28] MEDS: ENOXAPARIN SODIUM 40 MG/0.4 ML SYRINGE SQ SCH (09:00)
[2021-07-28] MEDS: POLYETHYLENE GLYCOL 3350 17 GM POWD.PACK PO SCH (09:00)
[2021-07-28 12:00] VITALS: BP 113/72
[2021-07-28] MEDS ORDERED: FENTANYL CITRATE PF 50 MCG/1 ML 2ML VIAL ONE (14:12)
[2021-07-28] MEDS ORDERED: MIDAZOLAM HCL 1 MG/ML 2ML VIAL ONE (14:13)
[2021-07-28 16:00] VITALS: BP 131/74
[2021-07-28 18:02] LABS: INR 1.05 (0.85-1.15); PROTHROMBIN TIME 11.4 SEC (9.6-11.6)
[2021-07-28 18:04] LABS: PARTIAL THROMBOPLASTIN TIME 28.1 SEC (26.3-35.5)
[2021-07-28] MEDS: TAMSULOSIN HCL 0.4 MG CAP.ER.24H PO SCH (19:31)
[2021-07-28 20:05] VITALS: BP 132/70
[2021-07-29 00:01] VITALS: BP 138/75
[2021-07-29] MEDS: MEROPENEM 1 GM VIAL IVP SCH ×2 (01:51→08:10)
[2021-07-29 04:15] VITALS: BP 118/73
[2021-07-29 05:01] LABS: HEMATOCRIT 31.5 % (42-54); MEAN CORPUSCULAR HEMOGLOBIN 26.6 pg (27.0-33.0); MEAN CORPUSCULAR HGB CONC 32.4 g/dL (32.0-36.0); MEAN CORPUSCULAR VOLUME 82.2 fL (79-99); RED BLOOD CELL COUNT(AUTO) 3.83 MIL/uL (4.50-6.20); RED CELL DISTRIBUTION WIDTH 13.3 % (11.0-15.5); WHITE BLOOD COUNT (AUTO) 7.9 K/uL (4.8-10.8)
[2021-07-29] MEDS: ZOSYN 3.375GM +NS 50ML IV SCH ×2 (05:09→15:06)
[2021-07-29 05:23] LABS: BILIRUBIN,TOTAL 0.7 mg/dL (0.2-1.0); CREATININE 0.9 mg/dL (0.5-1.5); MAGNESIUM 1.9 mg/dL (1.80-2.40); PHOSPHORUS 3.5 mg/dL (2.5-4.9); POTASSIUM 3.8 mmol/L (3.5-5.1); TOTAL PROTEIN, SERUM 6.6 g/dL (6.0-8.3)
[2021-07-29] MEDS: LEVOTHYROXINE 25 MCG TABLET PO SCH (05:50)
[2021-07-29] MEDS: INSULIN HUMULIN R 100 UNIT/ML 3ML SQ SCH ×4 (05:51→21:00)
[2021-07-29 08:00] VITALS: BP 133/77
[2021-07-29] MEDS: POLYETHYLENE GLYCOL 3350 17 GM POWD.PACK PO SCH (08:10)
[2021-07-29] MEDS: GABAPENTIN 300 MG CAPSULE PO SCH ×3 (08:10→21:38)
[2021-07-29] MEDS: ATORVASTATIN 20 MG TABLET PO SCH (08:10)
[2021-07-29] MEDS: LISINOPRIL 10 MG TABLET PO SCH (08:11)
[2021-07-29] MEDS: ENOXAPARIN SODIUM 40 MG/0.4 ML SYRINGE SQ SCH (08:12)
[2021-07-29] MEDS: METFORMIN HCL 500 MG TAB.SR.24H PO SCH (08:33)
[2021-07-29 16:00] VITALS: BP 135/73
[2021-07-29 19:35] VITALS: BP 138/72
[2021-07-29] MEDS: TAMSULOSIN HCL 0.4 MG CAP.ER.24H PO SCH (21:37)
[2021-07-29 23:41] VITALS: BP 118/73
[2021-07-30] VITALS (7 sets, daily range): BP systolic 80–144; BP diastolic 52–75
[2021-07-30] MEDS: ZOSYN 3.375GM +NS 50ML IV SCH ×2 (03:36→16:29)
[2021-07-30 05:26] LABS: HEMATOCRIT 31.7 % (42-54); MEAN CORPUSCULAR HEMOGLOBIN 27.2 pg (27.0-33.0); MEAN CORPUSCULAR HGB CONC 33.4 g/dL (32.0-36.0); MEAN CORPUSCULAR VOLUME 81.5 fL (79-99); RED BLOOD CELL COUNT(AUTO) 3.89 MIL/uL (4.50-6.20); RED CELL DISTRIBUTION WIDTH 13.3 % (11.0-15.5); WHITE BLOOD COUNT (AUTO) 10.2 K/uL (4.8-10.8)
[2021-07-30 05:46] LABS: CREATININE 0.9 mg/dL (0.5-1.5); PHOSPHORUS 3.3 mg/dL (2.5-4.9); POTASSIUM 4.4 mmol/L (3.5-5.1)
[2021-07-30] MEDS: INSULIN HUMULIN R 100 UNIT/ML 3ML SQ SCH ×4 (05:51→19:31)
[2021-07-30] MEDS: LEVOTHYROXINE 25 MCG TABLET PO SCH (06:30)
[2021-07-30] MEDS: GABAPENTIN 300 MG CAPSULE PO SCH ×3 (08:43→19:48)
[2021-07-30] MEDS: ENOXAPARIN SODIUM 40 MG/0.4 ML SYRINGE SQ SCH (08:43)
[2021-07-30] MEDS: LISINOPRIL 10 MG TABLET PO SCH (08:43)
[2021-07-30] MEDS: METFORMIN HCL 500 MG TAB.SR.24H PO SCH (08:43)
[2021-07-30] MEDS: ATORVASTATIN 20 MG TABLET PO SCH (08:44)
[2021-07-30] MEDS: POLYETHYLENE GLYCOL 3350 17 GM POWD.PACK PO SCH (08:44)
[2021-07-30] MEDS: TAMSULOSIN HCL 0.4 MG CAP.ER.24H PO SCH (19:48)
[2021-07-31] MEDS: ZOSYN 3.375GM +NS 50ML IV SCH ×2 (03:57→16:26)
[2021-07-31 04:02] VITALS: BP 108/66
[2021-07-31 05:00] LABS: HEMATOCRIT 31.9 % (42-54); MEAN CORPUSCULAR HEMOGLOBIN 26.5 pg (27.0-33.0); MEAN CORPUSCULAR HGB CONC 32.6 g/dL (32.0-36.0); MEAN CORPUSCULAR VOLUME 81.2 fL (79-99); RED BLOOD CELL COUNT(AUTO) 3.93 MIL/uL (4.50-6.20); RED CELL DISTRIBUTION WIDTH 13.2 % (11.0-15.5)
[2021-07-31 05:24] LABS: ALBUMIN 2.2 g/dL (3.5-5.0); BILIRUBIN,TOTAL 0.8 mg/dL (0.2-1.0); CREATININE 0.9 mg/dL (0.5-1.5); MAGNESIUM 1.9 mg/dL (1.80-2.40); PHOSPHORUS 3.2 mg/dL (2.5-4.9); POTASSIUM 3.9 mmol/L (3.5-5.1); TOTAL PROTEIN, SERUM 6.8 g/dL (6.0-8.3)
[2021-07-31] MEDS: INSULIN HUMULIN R 100 UNIT/ML 3ML SQ SCH ×4 (05:49→19:28)
[2021-07-31] MEDS: LEVOTHYROXINE 25 MCG TABLET PO SCH (05:57)
[2021-07-31 08:00] VITALS: BP 130/61
[2021-07-31] MEDS: METFORMIN HCL 500 MG TAB.SR.24H PO SCH (09:05)
[2021-07-31] MEDS: LISINOPRIL 10 MG TABLET PO SCH (09:05)
[2021-07-31] MEDS: POLYETHYLENE GLYCOL 3350 17 GM POWD.PACK PO SCH (09:05)
[2021-07-31] MEDS: ATORVASTATIN 20 MG TABLET PO SCH (09:05)
[2021-07-31] MEDS: GABAPENTIN 300 MG CAPSULE PO SCH ×3 (09:06→19:26)
[2021-07-31] MEDS: ENOXAPARIN SODIUM 40 MG/0.4 ML SYRINGE SQ SCH (09:06)
[2021-07-31 12:00] VITALS: BP 106/67
[2021-07-31 16:00] VITALS: BP 88/54
[2021-07-31] MEDS: TAMSULOSIN HCL 0.4 MG CAP.ER.24H PO SCH (19:26)
[2021-07-31 20:00] VITALS: BP 98/56
[2021-08-01] VITALS (9 sets, daily range): BP systolic 80–115; BP diastolic 41–68
[2021-08-01] MEDS: ACETAMINOPHEN 325 MG TAB PO PRN (00:29)
[2021-08-01] MEDS: ZOSYN 3.375GM +NS 50ML IV SCH ×2 (03:36→15:10)
[2021-08-01 04:35] LABS: BASOPHILS % (AUTO) 0.1 % (0.0-5.0); EOSINOPHILS % (AUTO) 0.2 % (0.0-8.0); HEMATOCRIT 28.1 % (42-54); LYMPHOCYTES % (AUTO) 3.7 % (21.0-51.0); MEAN CORPUSCULAR HEMOGLOBIN 26.7 pg (27.0-33.0); MEAN CORPUSCULAR HGB CONC 32.7 g/dL (32.0-36.0); MEAN CORPUSCULAR VOLUME 81.4 fL (79-99); MONOCYTES % (AUTO) 3.1 % (3.0-13.0); NEUTROPHILS % (AUTO) 92.3 % (40.0-77.0); PLATELET COUNT (AUTO) 211 K/uL (130-400); RED BLOOD CELL COUNT(AUTO) 3.45 MIL/uL (4.50-6.20); RED CELL DISTRIBUTION WIDTH 13.1 % (11.0-15.5); WHITE BLOOD COUNT (AUTO) 15.1 K/uL (4.8-10.8)
[2021-08-01 04:47] LABS: ALBUMIN 1.8 g/dL (3.5-5.0); BILIRUBIN,TOTAL 0.9 mg/dL (0.2-1.0); CREATININE 1.5 mg/dL (0.5-1.5); MAGNESIUM 1.8 mg/dL (1.80-2.40); PHOSPHORUS 3.1 mg/dL (2.5-4.9); POTASSIUM 4.2 mmol/L (3.5-5.1); TOTAL PROTEIN, SERUM 5.8 g/dL (6.0-8.3)
[2021-08-01] MEDS ORDERED: MIDODRINE HCL 5 MG TABLET ONE (04:52)
[2021-08-01] MEDS ORDERED: MIDODRINE HCL 5 MG TABLET PO SCH (05:00)
[2021-08-01] MEDS: INSULIN HUMULIN R 100 UNIT/ML 3ML SQ SCH ×3 (06:02→20:59)
[2021-08-01] MEDS: LEVOTHYROXINE 25 MCG TABLET PO SCH (06:10)
[2021-08-01] MEDS: ATORVASTATIN 20 MG TABLET PO SCH (08:13)
[2021-08-01] MEDS: METFORMIN HCL 500 MG TAB.SR.24H PO SCH (08:13)
[2021-08-01] MEDS: LISINOPRIL 10 MG TABLET PO SCH (08:15)
[2021-08-01] MEDS: POLYETHYLENE GLYCOL 3350 17 GM POWD.PACK PO SCH (08:15)
[2021-08-01] MEDS: ENOXAPARIN SODIUM 40 MG/0.4 ML SYRINGE SQ SCH (08:15)
[2021-08-01] MEDS: MIDODRINE HCL 5 MG TABLET PO SCH ×3 (08:23→20:59)
[2021-08-01] MEDS: GABAPENTIN 300 MG CAPSULE PO SCH ×3 (08:23→20:59)
[2021-08-01] MEDS: TAMSULOSIN HCL 0.4 MG CAP.ER.24H PO SCH (20:59)
[2021-08-02] MEDS: ZOSYN 3.375GM +NS 50ML IV SCH ×2 (03:23→16:02)
[2021-08-02 03:38] VITALS: BP 105/57
[2021-08-02 05:05] LABS: BASOPHILS % (AUTO) 0.4 % (0.0-5.0); HEMATOCRIT 27.4 % (42-54); LYMPHOCYTES % (AUTO) 14.6 % (21.0-51.0); MEAN CORPUSCULAR HEMOGLOBIN 27.2 pg (27.0-33.0); MEAN CORPUSCULAR HGB CONC 33.2 g/dL (32.0-36.0); MEAN CORPUSCULAR VOLUME 81.8 fL (79-99); MONOCYTES % (AUTO) 8.6 % (3.0-13.0); PLATELET COUNT (AUTO) 222 K/uL (130-400); RED BLOOD CELL COUNT(AUTO) 3.35 MIL/uL (4.50-6.20); RED CELL DISTRIBUTION WIDTH 13.2 % (11.0-15.5); WHITE BLOOD COUNT (AUTO) 7.3 K/uL (4.8-10.8)
[2021-08-02 05:30] LABS: CREATININE 1.1 mg/dL (0.5-1.5); MAGNESIUM 2.2 mg/dL (1.80-2.40); PHOSPHORUS 3.3 mg/dL (2.5-4.9)
[2021-08-02] MEDS: INSULIN HUMULIN R 100 UNIT/ML 3ML SQ SCH ×3 (06:34→16:05)
[2021-08-02] MEDS: LEVOTHYROXINE 25 MCG TABLET PO SCH (06:39)
[2021-08-02 07:35] VITALS: BP 114/69
[2021-08-02] MEDS: LISINOPRIL 10 MG TABLET PO SCH (08:19)
[2021-08-02] MEDS: ATORVASTATIN 20 MG TABLET PO SCH (08:19)
[2021-08-02] MEDS: MIDODRINE HCL 5 MG TABLET PO SCH ×2 (08:19→14:48)
[2021-08-02] MEDS: POLYETHYLENE GLYCOL 3350 17 GM POWD.PACK PO SCH (08:19)
[2021-08-02] MEDS: GABAPENTIN 300 MG CAPSULE PO SCH ×2 (08:19→14:48)
[2021-08-02] MEDS: METFORMIN HCL 500 MG TAB.SR.24H PO SCH (08:19)
[2021-08-02] MEDS: ENOXAPARIN SODIUM 40 MG/0.4 ML SYRINGE SQ SCH (08:20)
[2021-08-02 11:30] VITALS: BP 106/58
[2021-08-02 15:30] VITALS: BP 115/61
[2021-08-02 19:25] VITALS: BP 94/54
== END 2021-08-02 20:20 | disposition home or self-care (01) | DRG 871 ==
LOC: EDH 15:13 → UNDOADMIN 16:56 → EDHIP 16:56 → 2BH 22:08 → 3BH 07-26 10:22
PROVIDERS: ADMIT Internal Medicine Infectious Disease; ATTEND Internal Medicine Infectious Disease
PROC: 0FPB8DZ Removal of Intraluminal Device from Hepatobiliary Duct, Via Natural or Artificial Opening Endoscopic (ICD-10-PCS; principal; 2021-07-25)
PROC: 0FC98ZZ Extirpation of Matter from Common Bile Duct, Via Natural or Artificial Opening Endoscopic (ICD-10-PCS; 2021-07-25)
PROC: BF131ZZ Fluoroscopy of Gallbladder and Bile Ducts using Low Osmolar Contrast (ICD-10-PCS; 2021-07-25)
PROC: 05HY33Z Insertion of Infusion Device into Upper Vein, Percutaneous Approach (ICD-10-PCS; 2021-07-29)
DX: A41.50 Gram-negative sepsis, unspecified (principal); K75.0 Abscess of liver; R65.21 Severe sepsis with septic shock; N39.0 Urinary tract infection, site not specified; N17.9 Acute kidney failure, unspecified; E87.1 Hypo-osmolality and hyponatremia; I69.351 Hemiplegia and hemiparesis following cerebral infarction affecting right dominant side; D69.6 Thrombocytopenia, unspecified; E66.9 Obesity, unspecified; R53.81 Other malaise; E11.9 Type 2 diabetes mellitus without complications; I10 Essential (primary) hypertension; K80.50 Calculus of bile duct without cholangitis or cholecystitis without obstruction; D63.8 Anemia in other chronic diseases classified elsewhere; E78.00 Pure hypercholesterolemia, unspecified; Z90.49 Acquired absence of other specified parts of digestive tract; Z96.652 Presence of left artificial knee joint; Z83.3 Family history of diabetes mellitus; Z79.899 Other long term (current) drug therapy; Z68.30 Body mass index [BMI] 30.0-30.9, adult
CPT/HCPCS: 36415; 43262; 43264; 43275; 71045; 74150; 74170; 74181; 74330; 76700; 76705; 80048; 80053; 81001; 81003; 82105; 82948; 83605; 83735; 84100; 84145; 84484; 85025; 85027; 85610; 85651; 85730; 87040; 87071; 87077; 87088; 87186; 87205; 94640; 99152; 99291; A4606; C1751; C1769; C1773; C1894; G0378; J0330; J0461; J1650; J2185; J2250; J2543; J2704; J3010; J3475; J3490; J7030; J7042; Q9967